=== PATIENT | male | born 1940 | race Caucasian/White ===

== ENCOUNTER 2017-05-11 09:55 | Emergency (ER) | payer OTHER ==
[~2017-05-11] VITALS: Ht 167.6 cm; Wt 78.0 kg
[~2017-05-11 09:55] MED LIST: ASPIRIN EC81 M1 PO; ATORVASTATIN CA40 M1 PO; DAILY MULTIPLE1 EACH PO; FINASTERIDE5 M1 PO; LEVOTHYROXINE25 MCG PO; LISINOPRIL-HCT1 EAC2 PO; VANCOMYCIN HCL125 MG PO; VANCOMYCIN HCL5 G1 PO
[2017-05-11 10:00] VITALS: BP 125/89
--- NOTE | 2017-05-11 10:15 | ED CARDIAC/CP/PALPITATIONS ---
History of Present Illness General Chief Complaint: General Adult Stated Complaint: PER "THEY FOUND A AORTIC ANEURYSM ON CT SCAN" Source: patient, old records Exam Limitations: no limitations Vital Signs & Intake/Output Vital Signs & Intake/Output Vital Signs Date Time Temp Pulse Resp B/P B/P Pulse O2 O2 Flow FiO2 Mean Ox Delivery Rate 05/11 1000 96.3 67 20 125/89 96 Room Air Allergies Coded Allergies: NO KNOWN ALLERGIES (10/29/10) Reconcile Medications Aspirin (Ecotrin*) 81 MG TABLET.DR 1 TAB PO DAILY DIRECTED (Reported) Atorvastatin Calcium 40 MG TABLET 1 TAB PO DAILY DIRECTED (Reported) Finasteride 5 MG TABLET 1 TAB PO DAILY DIRECTED (Reported) Levothyroxine Sodium 25 MCG TABLET 1 TAB PO DAILY DIRECTED (Reported) Multivitamin (Daily Multiple Vitamin) 1 EACH TABLET 1 TAB PO DAILY DIRECTED (Reported) Vancomycin HCl 5 GM POWDER 125 MG PO Q6 c-diff colitis Please continue to take vancomycin until 12/28/15 and stop. Triage Note: PT TO ED FOR AORTIC ANEURSYM. PT HAD OUT PT CAT SCAN ON 05/08 AND RECEIVED CALL FROM DR BLEDSOE LAST NIGHT THAT HE NEEDED TO GO TO THE ER TO "GET IT TAKEN CARE OF". PT DENIES ANY PAIN. Triage Nurses Notes Reviewed? yes Onset: Gradual Duration: constant Timing: recent history Quality/Severity: mild Radiation: no radiation Activities at Onset: none HPI: Patient is a 77-year-old male with a past medical history of hypertension hyperlipidemia prostate cancer with metastasis and a known aortic aneurysm who presents emergency room in which he had follow-up imaging 3 days ago with his RADIOLOGIST/ONCOLOGIST- Dr. BLEDSOE from [facility] oncology which revealed an interval increase of his aneurysm which old records indicate in July 2015 the known aneurysm was approximately 4.5 cm and 3 days ago the aortic aneurysm reveals 5 cm DIAMETER Patient was advised by his radiologist oncologist to follow-up with his primary care doctor when he called today however he was unable to be evaluated by his primary care doctor in the next 2 days and which patient wants to emergently be evaluated for his aneurysm and he presents emergency room. Patient family is without complaints denies any shortness breath fever abdominal pain nausea vomiting chest pain arm pain and dizziness or extremity swelling BELOW IS THE CT SCAN RESULTS PATIENT: CAMPOS WILCOX PRESENT AGE: 77 PATIENT ACCOUNT NO: [id number] : 40 LOCATION: XRY ORDERING PHYSICIAN: Steve Bledsoe MD SERVICE DATE: 05/08/17 EXAM TYPE: CAT - CT ABD & PELVIS W/ ORAL CONTRA EXAMINATION: CT ABDOMEN AND PELVIS WITH CONTRAST CLINICAL INFORMATION: History of prostate cancer evaluate for metastatic disease. COMPARISON: CT scan of the abdomen and pelvis dated 12/19/2015. TECHNIQUE: Multidetector volumetric imaging was performed from the superior aspect of the liver through the pubic symphysis following administration of oral contrast. Sagittal and coronal reformatted images were obtained on the technologist's workstation. DLP: 577.64 mGy-cm FINDINGS: LUNG BASES: Peripheral and central severe emphysematous changes are present in the bilateral lungs, overall stable compared to the prior study. LIVER, GALLBLADDER, AND BILIARY TREE: Again noted are multiple hypoattenuating structures present in the liver, the largest is in the posterior aspect of the right lobe of the liver (series 2, image 11/92), and measures 1.2 cm in diameter stable in size and morphology compared to the prior study. The liver is otherwise normal in size, shape, and attenuation. No biliary ductal dilatation is present. The gallbladder is unremarkable with no evidence of radiopaque gallstones, gallbladder wall thickening, or obvious pericholecystic inflammatory changes. PANCREAS: Unremarkable. SPLEEN: Unremarkable. ADRENAL GLANDS: Unremarkable. KIDNEYS AND URETERS: Again noted are numerous renal cysts, which are overall stable in morphology compared to the prior study. The largest of the cystic structures are in the lower poles, measuring proximally 10.3 cm on the right and 9.8 cm on the left. BLADDER: Unremarkable. GASTROINTESTINAL TRACT: The small and large bowel are unremarkable. The appendix is unremarkable. ABDOMINAL WALL: No significant hernia is appreciated. LYMPH NODES: No pathologically enlarged lymph nodes are present.. VASCULAR: Interval mild increase in the size of the abdominal aortic aneurysm by comparison with the prior study, the aneurysm extends over a length of approximately 7 cm of the lower abdominal aorta and has an anterior posterior dimension of 5.0 cm, compared with 4.6 x 4.5 on the prior study. Extensive atherosclerotic plaque is present throughout the abdominal aorta extending into the celiac axis, the SMA, the bilateral renal arteries (minimal) and extending into the iliac arteries, as well as the splenic artery. 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 PELVIC VISCERA: The prostate gland is enlarged measuring 6.1 x 5.6 x 5.0 cm in size. OSSEOUS STRUCTURES: The bone mineral density is somewhat heterogeneous, however no focal lytic or sclerotic lesions are noted. Again noted is loss of vertebral body height and anterior wedging deformity of the T12 vertebral body which is stable compared to the prior study.. IMPRESSION: 1. Stable hypoattenuating hepatic lesions, most likely representing hepatic cysts. 2. Stable bilateral renal cysts. 3. Interval increase in the size of the abdominal aortic aneurysm in the inferior aspect of the abdominal aorta by comparison with the prior study. The anterior posterior dimension is 5.0 cm currently. 4. Enlarged prostate gland. 5. No hepatic, bony or pulmonary findings are noted to suggest interval development of metastatic disease. Please also refer to the nuclear medicine bone scan performed on the same day as the current study DICTATED BY: Kady Bay MD DATE/TIME DICTATED:05/08/171207 Patient AND FAMILY ARE concerned of a "ticking time bomb" AND ARE IN distress BECAUSE of a known aneurysm however patient offers no complaints at this time Patient will receive radiation therapy in the following week for new onset of prostate cancer diagnosed in March (Alfa Guan) Past History Travel History Traveled to [place] past 21 day No Medical History Any Pertinent Medical History? see below for history Neurological: NONE EENT: NONE Cardiovascular: aortic aneurysm, hypertension, hyperlipidemia Respiratory: COPD, pulmonary nodules Gastrointestinal: Crohn's disease (questionable), questionable lymphocytic colitis hx L ischemic colitis hx colon adenoma diverticulosis coli 11/29/2015 & 12/19/2015: C. 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 Musculoskeletal: degen joint disease, osteopenia Psychiatric: NONE Endocrine: hypothyroidism, osteopenia Blood Disorders: NONE Cancer(s): NONE CLINICAL CARE MANAGER/Reproductive: NONE History of MRSA: No History of VRE: No History of CDIFF: Yes Surgical History Surgical History: HERNIA REPAIR Psychosocial History Who do you live with Spouse Services at Home None What is your primary language Yoruba Tobacco Use: Current Daily Use Daily Tobacco Use Amount/Type: => 5 Cigarettes daily ETOH Use: denies use Illicit Drug Use: denies illicit drug use Family History Family History, If Any: MOTHER, , Age 86; Cause: Unknown family medical history. FATHER, , Age 84; Cause: Unknown family medical history. Hx Contributory? No (Alfa Guan) Review of Systems Review of Systems Constitutional: Reports: no symptoms. EENTM: Reports: no symptoms. Respiratory: Reports: no symptoms. Cardiovascular: Reports: no symptoms. GI: Reports: no symptoms. Genitourinary: Reports: no symptoms. Musculoskeletal: Reports: no symptoms. Skin: Reports: no symptoms. Neurological/Psychological: Reports: no symptoms. Hematologic/Endocrine: Reports: no symptoms. Immunologic/Allergic: Reports: no symptoms. All Other Systems: Reviewed and Negative (Alfa Guan) Physical Exam Physical Exam General Appearance: no apparent distress, alert, comfortable Head: atraumatic Eyes: Bilateral: normal appearance. Ears, Nose, Throat: hearing grossly normal Neck: normal inspection Respiratory: normal breath sounds, no respiratory distress Cardiovascular: regular rate/rhythm Peripheral Pulses: 2+ radial (R), 2+ radial (L) Gastrointestinal: normal bowel sounds, soft, non-tender, no organomegaly, NO PULSATILE MASS Extremities: normal inspection, normal capillary refill, no edema Neurologic/Psych: no motor/sensory deficits, awake, alert Skin: intact, normal color, warm/dry Core Measures ACS in differential dx? No CVA/TIA Diagnosis No Sepsis Present: No Sepsis Focused Exam Completed? No (Alfa Guan) Progress Differential Diagnosis: AMI, aortic dissection, atrial fibrillation, cholecystitis, CHF/pulm edema, costochondritis, hyperkalemia, hypovolemia, hyperthyroid, hyperventilation, intracranial hemorrhage, myocarditis, pancreatitis, pericarditis, pneumonia, pneumothorax, PSVT, pulmonary embolism, PUD/GERD, PVCs/PACs, respiratory failure, sepsis, unstable angina, V-fib/V-Tach, WPW syndrome Plan of Care: PT upon initial arrival was no apparent distress and asymptomatic no concerns of aortic aneurysm rupture or dissection nontender abdomen normotensive VASCULAR SURGERY WAS PAGED [id number] Discussed patient and imaging with vascular surgeon Dr. Salazar who advised since the diameter of the aneurysm is less than 5.5 cm and patient has no symptoms to follow-up in office. Discussed disposition and plan with patient and agree and will follow-up in outpatient office to Dr. Salazar. Discussed disposition plan with Dr. Baptiste who is aware and agrees upon discharge patient looks well HAS NO questionS Diagnostic Imaging: Viewed by Me: CT Scan. Initial ED EKG: none (Alfa Guan) Departure Departure Disposition: HOME OR SELF CARE Condition: Stable Clinical Impression Primary Impression: Aortic aneurysm Referrals: Martin MELENDEZ,Neptali Roberts MD,Albert Cruz (PCP/Family) Additional Instructions: As discussed today please follow-up with established vascular surgeon Dr. NEPTALI Salazar to make an appointment for further evaluation and treatment, continue all medications as directed and follow-up with your oncologist, symptoms worsen or IF YOU develop any new concerning symptom return to emergency room immediately. Departure Forms: Customer Survey General Discharge Information (Alfa Guan) PA/DIRECTOR DIGITAL SALES Co-Sign Statement Statement: ED Attending supervision documentation- [X] I saw and evaluated the patient. I have also reviewed all the pertinent lab results and diagnostic results. I agree with the findings and the plan of care as documented in the PA's/DIRECTOR DIG[employer] SALES's documentation. Patient presents for concern of worsening abdominal aortic aneurysm detected on CAT scan. Fortunately patient has no complaints currently and his abdominal examination is soft and nontender. [] I have reviewed the ED Record and agree with the PA's/DIRECTOR DIGITAL SALES's documentation. [] Additions or exceptions (if any) to the PAs/DIRECTOR DIGITAL SALES's note and plan are summarized below: [] (Oliva MELENDEZ,Rashawn White) Critical Care Note Critical Care Note Critical Care Time: non-applicable (Alfa Guan)
== END 2017-05-11 11:18 ==
LOC: ERH 09:55
DX: I71.9 Aortic aneurysm of unspecified site, without rupture (principal)

== ENCOUNTER 2017-12-11 04:32 | Inpatient (IN) | payer OTHER ==
[~2017-12-11] VITALS: Ht 167.6 cm; Wt 79.4 kg
[~2017-12-11 04:32] MED LIST changes: +ANORO ELLIPTA1 EACH; +LABETALOL HCL100 M1 PO
--- NOTE | 2017-12-11 12:22 | PN- Urology ---
Surgical Brief Attending Note Brief Attending Note: The patient was in the OR about to undergo vascular surgery. The OR staff was unable to place a reeves. On exam there was significant phimosis and the foreskin could not be retracted. Using a clamp the foreskin was dilated and a 16 fr reeves placed. Plan: 1. Leave reeves in for 48 hours and then give voiding trial
[2017-12-11 13:44] LABS: ABSOLUTE BASOPHIL COUNT 0 /CUMM (0.0-0.2); ABSOLUTE EOSINOPHIL COUNT 0.1 /CUMM (0.0-0.7); ABSOLUTE GRANULOCYTE CT 15.1 /CUMM (1.4-6.5); ABSOLUTE LYMPH COUNT 0.8 /CUMM (1.2-3.4); ABSOLUTE MONOCYTE COUNT 1.3 /CUMM (0.10-0.60); BASOPHIL % 0 % (0.0-2.0); EOSINOPHIL % 0.5 % (0-5); HEMATOCRIT 31.3 % (42-52); MEAN CORPUSCULAR HGB CONC 34.2 G/DL (33.0-37.0); MEAN CORPUSCULAR VOLUME 90.8 FL (80.0-94.0); PLATELET COUNT 223 /CUMM (130-400); RBC DISTRIBUTION WIDTH 13.9 % (11.5-14.5); RED BLOOD CELL CT 3.44 /CUMM (4.70-6.10); WHITE BLOOD CELL COUNT 17.1 /CUMM (4.8-10.8)
[2017-12-11 14:39] LABS: GRANULOCYTE % 87.8 % (42.2-75.2)
--- NOTE | 2017-12-11 15:55 | Operative Report ---
Operative/Inv Procedure Report Surgery Date: 12/11/17 Name of Procedure: EVAR Pre-Operative Diagnosis: AAA Post-Operative Diagnosis: AAA Estimated Blood Loss: scant (300), 300 Surgeon/Insulation Worker Apprentice: Jose Salazar MD Anesthesia: general endotracheal tube Specimens: right common femoral plaque Operative Indication: 77 y/o m w/ active smoker with history of copd, cad, ckd, prostate cancer s/p radiation therapy with known AAA and claudication. Pt had seen me in and the aneursym size was approxaimtely 4.7cm in diameter. REpeat CT shows the aneursym has increased in size to 5.2cm. Additionally the patient having significant life style limiting claudication-- could barely walk because of pain in both legs and CT demonstrating significnat bilateral iliac and common femoral disease. WE therefore planned to perform EVAR and simultenously treat the iliac disease. Risks/benefits/alternatives of procedure were discussed. He underwent pre operative cardiac clerance and stress test and was cleared for surgery. Operative/Procedure Note Note: Pt was brought to the OR. A timeout was done to verify the patients name, mrn, . He was placed under general anethesia in the supine position. A radial jimi and multiple large bore iv's were placed. Urology came and placed a reeves as the patient had a significant phimosis and prostate cancer. Prophylactic antibiotics were administered prior to start of the procedure. WE began using ultrasound in attempt to access the right common femoral artery percutaenously but had great difficulty because of the common femoral artery disease and therefore decided to proceed with bilateral groin cut down's. Myself and Dr. carter began simultaneously performing transvers incisions just above the groin crease using 10 blade scalpel. We then used the lynne to divide the subcutaenous tissue. The inguinal ligament was identified and we sharpely dissected the common femoral artery as it coursed under the inguinal ligaments. We obtained control of the common femoral artery, the profunda, and sfa's with vessel loops. The arteries were both heavily calcified. There was posterior plaques in both arteries. AT this time we used 18 gauge needles to access the common femoral arteries in soft spots in both arteries and placed .035 hawkins wires into the arteries. WE used 5 finnish sheaths and had to use a glide wire and catheter in order to advance through the iliac lesions on both sides. We then advance a pigtail into the aorta and shot and aortogram that showed bilateral common iliac lesions and right external iliac disease. At this time we anigioplastied both iliac arteries with a 6mm x 80 balloon. WE then upsized to a 7mm x 80 ballon and performed angioplasty. AT this time we began to have bleeding from the right groin and had to upsize to a 12 finnish sheath to stop the bleeding. We then upsized to a 7 finnish sheath in the left groin and placed lundequist wires up into the the thoracic aorta in both arteries using a glide catheter. WE then positioned a pig tail in the aorta and shot an aortogram. WE marked the location of the renal arteries and measured to the bifurcation. WE then advanced a 28 x 14 x 103 Medtronic main body device up the left side and positioned it just below the renals and deployed until the contra gate was deployed. The top cap was released. We then selected the contra gate using a .035 glide wire and catheter from the right side. We confirmed we were withing the gate by spinning a pigtail and shooting and angiogram within the stent. We then advanced the lundequst throught the catheter and shot an angiogram from the right sheath. The right hypogastric artery was occluded. WE used a 16 x 10 x 124mm limb and deployed it up the right side. We then finished deploying the main body and removed the device and placed a 16 finnish sheath up the left side. WE then used the pigtail catheter and shot an angiogram through the left sheath to jesus where the hypoastric artery was. WE then advanced the 16 x 10 x 124 device up the left side and deployed it. At this time we used two coda balloons and angioplastied the stent and both limbs. WE then placed the pigtail and shot another aortogram. There was still a stenosis in the common iliac on the left side and residual exernal iliac disease. There was good flow through the graft and no evidence of endoleak. Both renal arteries were patent. AT this time DR. Garcia performed stenting of the right common iliac and extrenal iliac artery and also right common femoral endarterectomy which he will dictate seperately. The left arteriotomy was closed with interuppted 6.0 prolene sutures after the wire and sheath was removed and the artery clampped proximally and distally. A 2.0 vicryl was used to close the deep layer and 3.0 vircryl was used to close the subcutenoues and deep dermal layer. Skin was closed with sara. All counts were accurate at the end of the procedure. The patient was extubated and transferred to pacu in stable condition.
[2017-12-11 16:00] VITALS: BP 116/60
--- NOTE | 2017-12-11 16:49 | PN- Vascular Surgery ---
Subjective Subjective: POST-OP NOTE No complaints. Still sleepy. Denies shortness of breath. No chest pains. No nausea/vomiting. Difficult reeves placement in the OR by . Post-op cbc drawn in pacu due to EBL. Transferred from PACU to ICU with dopplerable DP signals, which are reportedly palpable now. Objective Vital Signs and I&Os pacu flowsheet reviewed Physical Exam: General - alert. oriented to person, place, situation. Lungs - clear bilaterally. no w/r/r. Cardiac - s1s2. borderline bradycardic 60s. Abdomen - soft. nontender. - reeves catheter in place, draining clear, yellow urine without clots Extremities - warm bilaterally. groin dressings c/d/i. no hematomas appreciated. calves soft and nontender b/l. trace edema b/l lower extremities. nvi. palpable dp pulses b/l. Current Medications: Current Medications Sig/Galdino Start time Last Medication Dose Route Stop Time Status Admin Acetaminophen 650 MG Q6P PRN 12/11 1530 AC PO Acetaminophen 0 .STK-MED ONE 12/11 0702 DC IV Aspirin Buffered 81 MG DAILY 12/12 09 AC PO Atorvastatin Calcium 40 MG 1700 12/11 1700 AC PO Docusate Sodium 100 MG BID 12/11 2100 AC PO Fentanyl Citrate 0 .STK-MED ONE 12/11 0703 DC .ROUTE Labetalol HCl 100 MG DAILY 12/12 0900 AC PO Levothyroxine Sodium 0.025 MG DAILY AC 12/12 0700 AC PO Morphine Sulfate 2 MG Q4-6 PRN PRN 12/11 1530 AC IV Ondansetron HCl 4 MG Q6P PRN 12/11 1530 AC IV Oxycodone/ 1 TAB Q4P PRN 12/11 1530 AC Acetaminophen PO Oxycodone/ 2 TAB Q4P PRN 12/11 1530 AC Acetaminophen PO Sodium Chloride 1,000 ML Q8H 12/11 1530 AC IV Tiotropium [place] 1 PUF DAILY 12/12 09 AC INH Results Last 48 Hours of Labs: Laboratory Tests 12/11 1310 Hematology CBC w Diff NO MAN DIFF REQ WBC (4.8 - 10.8 /CUMM) 17.1 H RBC (4.70 - 6.10 /CUMM) 3.44 L Hgb (14.0 - 18.0 G/DL) 10.7 L Hct (42 - 52 %) 31.3 L MCV (80.0 - 94.0 FL) 90.8 MCH (27.0 - 31.0 PG) 31.0 MCHC (33.0 - 37.0 G/DL) 34.2 RDW (11.5 - 14.5 %) 13.9 Plt Count (130 - 400 /CUMM) 223 MPV (7.4 - 10.4 FL) 7.0 L Gran % (42.2 - 75.2 %) 87.8 H Lymphocytes % (20.5 - 51.1 %) 4.4 L Monocytes % (1.7 - 9.3 %) 7.3 Eosinophils % (0 - 5 %) 0.5 Basophils % (0.0 - 2.0 %) 0 Absolute Granulocytes (1.4 - 6.5 /CUMM) 15.1 H Absolute Lymphocytes (1.2 - 3.4 /CUMM) 0.8 L Absolute Monocytes (0.10 - 0.60 /CUMM) 1.3 H Absolute Eosinophils (0.0 - 0.7 /CUMM) 0.1 Absolute Basophils (0.0 - 0.2 /CUMM) 0 Assessment/Plan Assessment/Plan This 77 year old male with pmh significant for copd, active smoking, cad, ckd, prostate cancer s/p radiation therapy with known AAA and life style limiting claudication / CT demonstrating significant bilateral iliac and common femoral disease, POD#0 s/p endovascular AAA repair EVAR, iliac stents and common femoral endarectomy, also requiring intra-operative urology consultation by for difficult reeves catheter placement advance diet as tolerated pain control as ordered continue daily aspirin keep reeves catheter x 48 hours per , and then voiding trial neurovascular checks and groin checks f/u serial labs monitor urine output and continue ivf overnight for chronic kidney disease in setting of dye load f/u urine culture home meds ordered, including beta naila d/w Core Measures Venous Thromboembolism VTE Risk Factors Surgery No Mechanical VTE Prophylaxis d/t N/A MechProphylax Ordered No VTE Pharm Prophylaxis d/t NA PharmProphylax ordered
[2017-12-11 18:00] VITALS: BP 122/51
[2017-12-11 20:00] VITALS: BP 114/58
[2017-12-11 22:00] VITALS: BP 103/57
[2017-12-12] VITALS: BP 104/60
[2017-12-12 05:30] LABS: ABSOLUTE BASOPHIL COUNT 0 /CUMM (0.0-0.2); ABSOLUTE EOSINOPHIL COUNT 0 /CUMM (0.0-0.7); ABSOLUTE GRANULOCYTE CT 9.3 /CUMM (1.4-6.5); ABSOLUTE LYMPH COUNT 1.1 /CUMM (1.2-3.4); ABSOLUTE MONOCYTE COUNT 1.4 /CUMM (0.10-0.60); BASOPHIL % 0.1 % (0.0-2.0); EOSINOPHIL % 0.1 % (0-5); GRANULOCYTE % 78.2 % (42.2-75.2); HEMATOCRIT 30.5 % (42-52); MEAN CORPUSCULAR HGB 30.7 PG (27.0-31.0); MEAN CORPUSCULAR HGB CONC 33.2 G/DL (33.0-37.0); MEAN CORPUSCULAR VOLUME 92.5 FL (80.0-94.0); MEAN PLATELET VOLUME 7.1 FL (7.4-10.4); PLATELET COUNT 193 /CUMM (130-400); RBC DISTRIBUTION WIDTH 14.4 % (11.5-14.5); WHITE BLOOD CELL COUNT 11.8 /CUMM (4.8-10.8)
--- NOTE | 2017-12-12 06:29 | PN- Vascular Surgery ---
Subjective Subjective: feeling ok, some left back/flank pain (present preop per pt), some groin pain, no n/v/cp/sob. no oob. hungry. Objective Vital Signs and I&Os Vital Signs SBP 100-120s overnight HR-60s overnight sats mid90s on 50%vm Date Time Temp Pulse Resp B/P B/P Pulse O2 O2 Flow FiO2 Mean Ox Delivery Rate 12/12 0000 97.9 58 20 104/60 92 Nasal 3.0L Cannula 12/12 0000 92 Nasal 3.0L Cannula 12/11 2200 62 20 103/57 93 Nasal 3.0L Cannula 12/12 1999 93 Nasal 3.0L Cannula 12/12 1999 98.1 64 22 114/58 93 Nasal 3.0L Cannula 12/11 1938 Nasal 4.0L Cannula 12/11 1800 97.0 62 19 122/51 97 Nasal 3.0L Cannula 12/11 1600 Nasal 3.0L Cannula 12/11 1600 97.0 67 20 116/60 94 Nasal 3.0L Cannula Intake & Output 12/12 0800 12/12 0000 12/11 1600 12/11 0800 12/11 0000 12/10 1600 Intake Total 1385 Output Total 450 Balance 935 Intake, IV 785 Intake, Oral 600 Output, Urine 450 Patient 179 lb 179 lb Weight Weight Bed scale Bed scale Measurement Method Physical Exam: gen- nad card-s1s2 pulm-decreased bs bases abd- soft, obese, distended, nt ext- bl groins dressed-ttp, no hematoma, mild dinorah-incisional ecchymosis r groin. palp dp bl. calves soft nt bl, alps on. gross motor/sensate intact bl feet Current Medications: Current Medications Sig/Galdino Start time Last Medication Dose Route Stop Time Status Admin Acetaminophen 650 MG Q6P PRN 12/11 1530 AC PO Acetaminophen 0 .STK-MED ONE 12/11 0702 DC IV Albuterol Sulfate 3 ML Q4-PRN PRN 12/11 1930 AC 12/11 INH 1936 Aspirin Buffered 81 MG DAILY 12/12 0900 AC PO Atorvastatin Calcium 40 MG 1700 12/11 1700 AC 12/11 PO 1833 Docusate Sodium 100 MG BID 12/11 2100 AC PO Fentanyl Citrate 0 .STK-MED ONE 12/11 0703 DC .ROUTE Ipratropium [place] 2.5 ML Q4-6 PRN 12/11 1930 AC 12/11 INH 1936 Labetalol HCl 100 MG DAILY 12/12 0900 AC PO Levothyroxine Sodium 0.025 MG DAILY AC 12/12 0700 AC PO Morphine Sulfate 2 MG Q4-6 PRN PRN 12/11 1530 AC IV Ondansetron HCl 4 MG Q6P PRN 12/11 1530 AC IV Oxycodone/ 1 TAB Q4P PRN 12/11 1530 AC Acetaminophen PO Oxycodone/ 2 TAB Q4P PRN 12/11 1530 AC Acetaminophen PO Sodium Chloride 1,000 ML Q8H 12/11 1530 AC 12/12 IV 0002 Tiotropium [place] 1 PUF DAILY 12/12 09 AC INH Results Last 48 Hours of Labs: Laboratory Tests 12/12 12/11 0430 1310 Chemistry Sodium Pending Potassium Pending Chloride Pending Carbon Dioxide Pending Anion Gap Pending BUN Pending Creatinine Pending BUN/Creatinine Ratio Pending Hematology CBC w Diff NO MAN DIFF REQ NO MAN DIFF REQ WBC (4.8 - 10.8 /CUMM) 11.8 H 17.1 H RBC (4.70 - 6.10 /CUMM) 3.30 L 3.44 L Hgb (14.0 - 18.0 G/DL) 10.1 L 10.7 L Hct (42 - 52 %) 30.5 L 31.3 L MCV (80.0 - 94.0 FL) 92.5 90.8 MCH (27.0 - 31.0 PG) 30.7 31.0 MCHC (33.0 - 37.0 G/DL) 33.2 34.2 RDW (11.5 - 14.5 %) 14.4 13.9 Plt Count (130 - 400 /CUMM) 193 223 MPV (7.4 - 10.4 FL) 7.1 L 7.0 L Gran % (42.2 - 75.2 %) 78.2 H 87.8 H Lymphocytes % (20.5 - 51.1 %) 9.5 L 4.4 L Monocytes % (1.7 - 9.3 %) 12.1 H 7.3 Eosinophils % (0 - 5 %) 0.1 0.5 Basophils % (0.0 - 2.0 %) 0.1 0 Absolute Granulocytes (1.4 - 6.5 /CUMM) 9.3 H 15.1 H Absolute Lymphocytes (1.2 - 3.4 /CUMM) 1.1 L 0.8 L Absolute Monocytes (0.10 - 0.60 /CUMM) 1.4 H 1.3 H Absolute Eosinophils (0.0 - 0.7 /CUMM) 0 0.1 Absolute Basophils (0.0 - 0.2 /CUMM) 0 0 Assessment/Plan Assessment/Plan 77yoM POD1 sp evar, common fem endarterectomy, ilial stenting, with difficult reeves placement requiring Dr. Lopez to place in OR, has been bedrest since OR, stable P- HH diet keep ivf until lytes back- asa 81 daily prn apin meds ok for oob today ?out of icu today keep reeves in place x48hr- [facility] meds will dw attending Core Measures Venous Thromboembolism VTE Risk Factors Surgery No Mechanical VTE Prophylaxis d/t N/A MechProphylax Ordered No VTE Pharm Prophylaxis d/t NA PharmProphylax ordered
--- NOTE | 2017-12-12 07:29 | PN- Urology ---
Subjective Subjective: Comfortable Objective Vital Signs and I&Os Vital Signs Date Time Temp Pulse Resp B/P B/P Pulse O2 O2 Flow FiO2 Mean Ox Delivery Rate 12/12 0000 97.9 58 20 104/60 92 Nasal 3.0L Cannula 12/12 92 Nasal 3.0L Cannula 12/11 2200 62 20 103/57 93 Nasal 3.0L Cannula 12/12 1999 93 Nasal 3.0L Cannula 12/12 1999 98.1 64 22 114/58 93 Nasal 3.0L Cannula 12/11 1938 Nasal 4.0L Cannula 12/11 1800 97.0 62 19 122/51 97 Nasal 3.0L Cannula 12/11 1600 Nasal 3.0L Cannula 12/11 1600 97.0 67 20 116/60 94 Nasal 3.0L Cannula Intake & Output 12/12 0812/12 0000 12/11 1600 12/11 0812/11 0000 12/10 1600 Intake Total 1349 1385 Output Total 480 450 Balance 869 935 Intake, IV 1029 785 Intake, Oral 320 600 Output, Urine 480 450 Patient 179 lb 179 lb Weight Weight Bed scale Bed scale Measurement Method Reeves draining clear urine Laboratory Tests 12/12 12/11 0430 1310 Chemistry Sodium (137 - 145 mmol/L) 138 Potassium (3.5 - 5.1 mmol/L) 4.6 Chloride (98 - 107 mmol/L) 109 H Carbon Dioxide (22 - 30 mmol/L) 23 Anion Gap (5 - 16) 6 BUN (9 - 20 mg/dL) 28 H Creatinine (0.7 - 1.2 mg/dL) 1.4 H Estimated GFR (>60 ml/min) 49 L BUN/Creatinine Ratio (7 - 25 %) 20.0 Hematology CBC w Diff NO MAN DIFF REQ NO MAN DIFF REQ WBC (4.8 - 10.8 /CUMM) 11.8 H 17.1 H RBC (4.70 - 6.10 /CUMM) 3.30 L 3.44 L Hgb (14.0 - 18.0 G/DL) 10.1 L 10.7 L Hct (42 - 52 %) 30.5 L 31.3 L MCV (80.0 - 94.0 FL) 92.5 90.8 MCH (27.0 - 31.0 PG) 30.7 31.0 MCHC (33.0 - 37.0 G/DL) 33.2 34.2 RDW (11.5 - 14.5 %) 14.4 13.9 Plt Count (130 - 400 /CUMM) 193 223 MPV (7.4 - 10.4 FL) 7.1 L 7.0 L Gran % (42.2 - 75.2 %) 78.2 H 87.8 H Lymphocytes % (20.5 - 51.1 %) 9.5 L 4.4 L Monocytes % (1.7 - 9.3 %) 12.1 H 7.3 Eosinophils % (0 - 5 %) 0.1 0.5 Basophils % (0.0 - 2.0 %) 0.1 0 Absolute Granulocytes (1.4 - 6.5 /CUMM) 9.3 H 15.1 H Absolute Lymphocytes (1.2 - 3.4 /CUMM) 1.1 L 0.8 L Absolute Monocytes (0.10 - 0.60 /CUMM) 1.4 H 1.3 H Absolute Eosinophils (0.0 - 0.7 /CUMM) 0 0.1 Absolute Basophils (0.0 - 0.2 /CUMM) 0 0 Assessment/Plan Assessment/Plan Imp: 1. s/p difficulty reeves placement, due to severe phimosis 2. hx of prostate ca tx'ed with RT Plan: 1. would leave reeves today and remove first thing tomorrow AM
[2017-12-12 08:00] VITALS: BP 120/70
--- NOTE | 2017-12-12 08:03 | RADIOLOGY REPORT ---
EXAMINATION: Intraoperative fluoroscopy CLINICAL INFORMATION: Intraoperative abdominal aortic aneurysm repair. COMPARISON: CT abdomen pelvis 11/03/2017 TECHNIQUE: Intraoperative fluoroscopy was provided for use by Dr. Salazar. A total of 15 images were saved to PACS. A radiologist was not present during imaging. TOTAL FLUOROSCOPIC TIME: 26 minutes and 41 seconds FINDINGS\E\IMPRESSION: Intraoperative fluoroscopy provided for use by Dr. Salazar. Please see operative note for detailed findings.
--- NOTE | 2017-12-12 09:11 | RADIOLOGY REPORT ---
EXAMINATION: XR PORTABLE CHEST CLINICAL INFORMATION: Pain to left lower ribs. COMPARISON: None TECHNIQUE: Portable frontal view of the chest was obtained. FINDINGS: Slightly rotated positioning. Monitoring leads projected over the chest. Cardiomediastinal silhouette is within normal limits. Calcification of the aortic arch. Linear and streaky opacities in bilateral lung bases, more prominent on the left. Small left pleural effusion. Mildly displaced fracture of the lateral left 10th rib. Suspected undisplaced fracture of the lateral left 11th rib. IMPRESSION: Bibasilar atelectasis, more prominent on the left. Small left pleural effusion. Fracture of the lateral left 10th,11th rib.
--- NOTE | 2017-12-12 11:27 | PN- Vascular Surgery ---
Surgical Brief Attending Note Brief Attending Note: pt seen and examined this am. s/p EVAR and right common femoral endarterectomy, right external iliac stent, left groin cut down yesterday for AAA and PAD. He had reeves placed by urology for severe phimosis. complaining of some left rib pain this am-- hit ribs on table when getting stress test. CXR shows 10th and 11th rib fx's. Will need pain mgmt and incentive spirometry. otherwise labs wnl. cre 1.4 today-- previouly 1.7. hct 30's. groins soft c/d/i. strong dp signals. plan is for pt oob/ambulate. asa. reeves mgmt per urology. hopefully dc tomorrow if able to ambulate and void after reeves removed. can dc from [facility] today
--- NOTE | 2017-12-12 15:43 | Operative Report ---
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 Salazar's note. I independently performed the right common femoral artery endarterectomy and angioplasty as well as right external iliac artery stenting and angioplasty. Via sheath in the right common femoral artery, angioplasty of the right external iliac artery was performed using 6 x 60 followed by 7 x 60 mm balloon. Then a Cordis self-expanding stent measuring 7 x 100 mm was deployed and external iliac artery. Post stenting angioplasty was performed with a 7 x 60 mm balloon. Post angioplasty and stenting of the external iliac artery showed brisk flow through this vessel. After the sheath was removed from the EVAR procedure, the artery was shattered and closure was not possible. There was a large heavy calcification in the posterior and lateral sands of the artery. I decided to extend the arteriotomy in the cephalad and caudal direction. Then, control of distal proximal profunda was obtained by vessel loops. Using an elevator, endarterectomy of the common femoral artery was performed. Then the patch angioplasty was performed with bovine patch using 6-0 Prolene suture. After the completion of the endarterectomy and patch, was great biphasic Doppler signal in the profunda and SFA. The count at the end of the case was correct. The wound was then closed with 3-0 Vicryl suture in interrupted fashion. The skin was then closed with sara. Sterile dressing was applied. The patient was taken to the recovery room in stable condition.
[2017-12-13] VITALS: BP 112/60
[2017-12-13 04:00] VITALS: BP 120/58
--- NOTE | 2017-12-13 07:52 | PN- Urology ---
Subjective Subjective: No complaints Objective Vital Signs and I&Os Vital Signs Date Time Temp Pulse Resp B/P B/P Pulse O2 O2 Flow FiO2 Mean Ox Delivery Rate 12/13 0400 96.4 66 18 120/58 92 Nasal 4.0L Cannula 12/13 0000 92 Nasal 4.0L Cannula 12/13 0000 96.8 68 22 112/60 92 Nasal 4.0L Cannula 12/12 2228 94 Nasal 4.0L Cannula 12/12 1600 92 Nasal 3.0L Cannula 12/12 0939 94 Nasal 4.0L Cannula 12/12 0800 92 Venti Mask 50% 12/12 08 97.8 80 25 120/70 92 Venti Mask 50% Intake & Output 12/13 0800 12/13 0000 12/12 1600 12/12 0812/12 0000 12/11 1600 Intake Total 1100 378 969 0913 1385 Output Total 950 450 480 450 Balance 150 800 525 869 935 Intake, IV 800 760 708 5286 785 Intake, Oral 300 600 320 600 Number 0 0 Bowel Movements Output, Urine 950 450 480 450 Patient 179 lb 179 lb Weight Weight Bed scale Bed scale Measurement Method Reeves in place. Draining clear urine Urine culture growing gram neg rods Assessment/Plan Assessment/Plan Imp: 1. s/p difficult reeves insertion due to severe phimosis 2. UTI 3. Hx of prostate ca tx with RT Plan: 1. Would start po keflex pending urine culture results 2. Would remove reeves early this AM 3. After discharge will need f/u either with his usual urologist or in our office
[2017-12-13 08:00] VITALS: BP 120/80
[2017-12-13 10:00] VITALS: BP 138/60
--- NOTE | 2017-12-13 10:51 | PN- Vascular Surgery ---
See Addendum Subjective Subjective: PT SITTING IN CHAIR SOB AFTER AMBULTING WITH PT, ON 4L O2 BY NASAL CANULA WITH O2 SAT 88-92. PT STATES THAT RIB PAIN IS SIGNIFICANTLY BETTER TODAY. IS PRETTY TENDER IN LEFT GROIN. TOLERATING DIET HAWKINS WAS REMOVED THIS MORNING AND PT IS VOIDING Objective Vital Signs and I&Os Vital Signs Date Time Temp Pulse Resp B/P B/P Pulse O2 O2 Flow FiO2 Mean Ox Delivery Rate 12/13 0400 96.4 66 18 120/58 92 Nasal 4.0L Cannula 12/13 0000 92 Nasal 4.0L Cannula 12/13 0000 96.8 68 22 112/60 92 Nasal 4.0L Cannula 12/12 2228 94 Nasal 4.0L Cannula 12/12 1600 92 Nasal 3.0L Cannula Intake & Output 12/13 1600 12/13 0800 12/13 0000 12/12 1600 12/12 0800 12/12 0000 Intake Total 1100 897 262 5857 1385 Output Total 950 450 480 450 Balance 150 800 525 869 935 Intake, IV 800 810 958 0602 785 Intake, Oral 300 600 320 600 Number 0 0 Bowel Movements Output, Urine 950 450 480 450 Patient 179 lb Weight Weight Bed scale Measurement Method Physical Exam: GEN- nad RESP- RHONCHI THROUGHOUT CARDIAC-RRR ABD- SOFT NONTENDER. RIGHT GROIN DRESSING CHANGED, PETE IN PLACE, MINIMAL DRAINAGE ON DRESSING, NO SIGNS OF INFECTION. CLEAN DRY DRESSING APPLIED. LEFT GROIN DRESSING CHANGED, PETE IN PLACE, MINIMAL DRAINAGE ON DRESSING, NO SIGNS OF INFECTION. CLEAN DRY DRESSING APPLIED EXT- WARM AND DRY, 1+DP PULSE BILATERALLY. BASELINE DISTAL SENSORY AND MOTOR FUNCTION INTACT Current Medications: Current Medications Sig/Galdino Start time Last Medication Dose Route Stop Time Status Admin Acetaminophen 650 MG Q6P PRN 12/11 1530 AC PO Albuterol Sulfate 3 ML Q4-PRN PRN 12/11 1930 AC 12/12 INH 0918 Aspirin Buffered 81 MG DAILY 12/12 0900 AC 12/12 PO 1043 Atorvastatin Calcium 40 MG 1700 12/11 1700 AC 12/12 PO 1623 Cephalexin 500 MG BID 12/13 1000 UNVr PO Docusate Sodium 100 MG BID 12/11 2100 AC 12/12 PO 2107 Furosemide 20 MG ONCE ONE 12/13 1100 UNVr PO 12/13 1101 Ipratropium [place] 2.5 ML Q4-6 PRN 12/11 1930 AC 12/11 INH 1936 Labetalol HCl 100 MG DAILY 12/12 0900 AC 12/12 PO 1043 Levothyroxine Sodium 0.025 MG DAILY AC 12/12 0700 AC 12/13 PO 0730 Morphine Sulfate 2 MG Q4-6 PRN PRN 12/11 1530 AC IV Ondansetron HCl 4 MG Q6P PRN 12/11 1530 AC IV Oxycodone/ 1 TAB Q4P PRN 12/11 1530 AC 12/12 Acetaminophen PO 1640 Oxycodone/ 2 TAB Q4P PRN 12/11 1530 AC Acetaminophen PO Sodium Chloride 1,000 ML Q8H 12/11 1530 DC 12/13 IV 0730 Tiotropium [place] 1 PUF DAILY 12/12 0900 AC 12/12 INH 1042 Zolpidem Tartrate 0 .STK-MED ONE 12/13 0124 DC PO Zolpidem Tartrate 5 MG AT BEDTIME 12/13 0115 AC 12/13 PO 0125 Results Last 48 Hours of Labs: Laboratory Tests 12/12 12/11 0430 1310 Chemistry Sodium (137 - 145 mmol/L) 138 Potassium (3.5 - 5.1 mmol/L) 4.6 Chloride (98 - 107 mmol/L) 109 H Carbon Dioxide (22 - 30 mmol/L) 23 Anion Gap (5 - 16) 6 BUN (9 - 20 mg/dL) 28 H Creatinine (0.7 - 1.2 mg/dL) 1.4 H Estimated GFR (>60 ml/min) 49 L BUN/Creatinine Ratio (7 - 25 %) 20.0 Hematology CBC w Diff NO MAN DIFF REQ NO MAN DIFF REQ WBC (4.8 - 10.8 /CUMM) 11.8 H 17.1 H RBC (4.70 - 6.10 /CUMM) 3.30 L 3.44 L Hgb (14.0 - 18.0 G/DL) 10.1 L 10.7 L Hct (42 - 52 %) 30.5 L 31.3 L MCV (80.0 - 94.0 FL) 92.5 90.8 MCH (27.0 - 31.0 PG) 30.7 31.0 MCHC (33.0 - 37.0 G/DL) 33.2 34.2 RDW (11.5 - 14.5 %) 14.4 13.9 Plt Count (130 - 400 /CUMM) 193 223 MPV (7.4 - 10.4 FL) 7.1 L 7.0 L Gran % (42.2 - 75.2 %) 78.2 H 87.8 H Lymphocytes % (20.5 - 51.1 %) 9.5 L 4.4 L Monocytes % (1.7 - 9.3 %) 12.1 H 7.3 Eosinophils % (0 - 5 %) 0.1 0.5 Basophils % (0.0 - 2.0 %) 0.1 0 Absolute Granulocytes (1.4 - 6.5 /CUMM) 9.3 H 15.1 H Absolute Lymphocytes (1.2 - 3.4 /CUMM) 1.1 L 0.8 L Absolute Monocytes (0.10 - 0.60 /CUMM) 1.4 H 1.3 H Absolute Eosinophils (0.0 - 0.7 /CUMM) 0 0.1 Absolute Basophils (0.0 - 0.2 /CUMM) 0 0 Assessment/Plan Assessment/Plan Assessment/Plan 77yoM POD2 sp evar, common fem endarterectomy, ilial stenting, with difficult hawkins placement requiring Dr. Lopez to place in OR. Hawkins DCed this morning. pt has left rib fractures, 10 and 11th ribs. pt still requiring 4L O2 to maintain sats P- CXR chest PT encourage IS lasix now try to wean O2 when able HH diet asa 81 daily prn apin meds- may consider lidoderm patch ok for oob today still in CCU on gen/med hold per urology- will start ABX cont home meds dr amaya is aware and agrees with the above plan Core Measures Venous Thromboembolism VTE Risk Factors Surgery No Mechanical VTE Prophylaxis d/t N/A MechProphylax Ordered No VTE Pharm Prophylaxis d/t NA PharmProphylax ordered
[2017-12-13 12:30] LABS: ABSOLUTE BASOPHIL COUNT 0 /CUMM (0.0-0.2); ABSOLUTE EOSINOPHIL COUNT 0.5 /CUMM (0.0-0.7); ABSOLUTE GRANULOCYTE CT 8.4 /CUMM (1.4-6.5); ABSOLUTE LYMPH COUNT 1.1 /CUMM (1.2-3.4); ABSOLUTE MONOCYTE COUNT 1.2 /CUMM (0.10-0.60); BASOPHIL % 0.3 % (0.0-2.0); HEMATOCRIT 31.6 % (42-52); MEAN CORPUSCULAR HGB 30.5 PG (27.0-31.0); MEAN CORPUSCULAR VOLUME 92.4 FL (80.0-94.0); MEAN PLATELET VOLUME 7.1 FL (7.4-10.4); PLATELET COUNT 226 /CUMM (130-400); RBC DISTRIBUTION WIDTH 14.4 % (11.5-14.5); RED BLOOD CELL CT 3.42 /CUMM (4.70-6.10); WHITE BLOOD CELL COUNT 11.3 /CUMM (4.8-10.8)
--- NOTE | 2017-12-13 14:09 | PN- Vascular Surgery ---
Surgical Brief Attending Note Brief Attending Note: pt seen and examined. reeves out and voiding. has ambulated without difficulty. still on 4 liters 02. a/p 77 y/o m s/p EVAR and right femoral endarterectomy with iliac stenting --ok for discharge when off o2 -- abx for uti per urology
[2017-12-13 16:00] VITALS: BP 110/68
--- NOTE | 2017-12-13 16:22 | RADIOLOGY REPORT ---
EXAMINATION: XR CHEST CLINICAL INFORMATION: Shortness of breath requiring oxygen. Atelectasis. COMPARISON: Chest x-ray 12/12/2017. TECHNIQUE: Frontal and lateral views of the chest were obtained. FINDINGS: The lungs are hyperexpanded with flattening of the hemidiaphragms and retrosternal air trapping, consistent with COPD. The cardiac silhouette is normal in size. The aortic arch is calcified and unfolded and the descending aorta is tortuous and ectatic. Linear opacities at the right base with prominent compared to the prior study consistent with atelectasis. There are atelectatic changes at the left base. The left pleural effusion appears minimally increased in size compared to the prior study. The hilar regions are prominent bilaterally consistent with prominent central pulmonary arteries. The previously noted fractures of the left 10th and 11th ribs laterally are not appreciated on the current study. There are multilevel degenerative changes in the thoracic spine. IMPRESSION: 1. There has been slight interval increase in the left pleural effusion. 2. There is increase in atelectasis at the right base.
[2017-12-13 22:15] VITALS: BP 122/60
[2017-12-14 06:11] VITALS: BP 120/60
--- NOTE | 2017-12-14 07:45 | PN- Urology ---
Subjective Subjective: Comfortable Objective Vital Signs and I&Os Vital Signs Date Time Temp Pulse Resp B/P B/P Pulse O2 O2 Flow FiO2 Mean Ox Delivery Rate 12/14 0611 97.3 71 20 120/60 93 Nasal 2.0L Cannula 12/14 0000 Nasal 2.0L Cannula 12/13 2215 98.3 72 20 122/60 90 Nasal Cannula 12/13 1935 93 Nasal 3.0L Cannula 12/13 1600 Nasal 2.0L Cannula 12/13 1600 96.8 68 18 110/68 93 Nasal 2.0L Cannula 12/13 1251 92 Nasal 2.0L Cannula 12/13 1054 72 138/60 12/13 1000 72 20 138/60 93 Nasal 4.0L Cannula 12/13 0800 Nasal 4.0L Cannula 12/13 0800 96.6 66 18 120/80 94 Room Air Intake & Output 12/14 0800 12/14 0000 12/13 1600 12/13 0800 12/13 0000 12/12 1600 Intake Total 240 371 795 5371 800 975 Output Total 122 872 9113 950 450 Balance 40 140 -500 150 800 525 Intake, IV 40 800 800 375 Intake, Oral 240 240 560 300 600 Number 0 0 Bowel Movements Output, Urine 006 308 0287 950 450 Patient 179 lb Weight Reeves removed yesterday. Patient voiding spontaneously without complaints Abd: soft and non tender. Bladder not palpable. Laboratory Tests 12/13 1130 Chemistry Sodium (137 - 145 mmol/L) 136 L Potassium (3.5 - 5.1 mmol/L) 4.7 Chloride (98 - 107 mmol/L) 106 Carbon Dioxide (22 - 30 mmol/L) 25 Anion Gap (5 - 16) 5 BUN (9 - 20 mg/dL) 28 H Creatinine (0.7 - 1.2 mg/dL) 1.3 H Estimated GFR (>60 ml/min) 54 L BUN/Creatinine Ratio (7 - 25 %) 21.5 Hematology CBC w Diff NO MAN DIFF REQ WBC (4.8 - 10.8 /CUMM) 11.3 H RBC (4.70 - 6.10 /CUMM) 3.42 L Hgb (14.0 - 18.0 G/DL) 10.4 L Hct (42 - 52 %) 31.6 L MCV (80.0 - 94.0 FL) 92.4 MCH (27.0 - 31.0 PG) 30.5 MCHC (33.0 - 37.0 G/DL) 33.0 RDW (11.5 - 14.5 %) 14.4 Plt Count (130 - 400 /CUMM) 226 MPV (7.4 - 10.4 FL) 7.1 L Gran % (42.2 - 75.2 %) 75.0 Lymphocytes % (20.5 - 51.1 %) 9.8 L Monocytes % (1.7 - 9.3 %) 10.9 H Eosinophils % (0 - 5 %) 4.0 Basophils % (0.0 - 2.0 %) 0.3 Absolute Granulocytes (1.4 - 6.5 /CUMM) 8.4 H Absolute Lymphocytes (1.2 - 3.4 /CUMM) 1.1 L Absolute Monocytes (0.10 - 0.60 /CUMM) 1.2 H Absolute Eosinophils (0.0 - 0.7 /CUMM) 0.5 Absolute Basophils (0.0 - 0.2 /CUMM) 0 Urine culture positive for proteus, sensitive to keflex Assessment/Plan Assessment/Plan Imp: 1. s/p difficult reeves insertion due to phimosis 2. UTI 3. Hx of prostate ca tx'ed with RT Plan: 1. In view of recent vascular procedure involving grafts and UTI would complete a 1 week course of keflex as outpatient 2. Pt should have f/u either with his usual urologist or in our office in the future
--- NOTE | 2017-12-14 07:52 | PN- General Surgery ---
Core Measures Venous Thromboembolism VTE Risk Factors Surgery No Mechanical VTE Prophylaxis d/t N/A MechProphylax Ordered No VTE Pharm Prophylaxis d/t NA PharmProphylax ordered
[2017-12-14] MEDS ORDERED: PERCOCET 5-3251 EACH PO (11:22)
[2017-12-14] MEDS ORDERED: CEPHALEXIN500 M3 PO (11:22)
[2017-12-14] MEDS ORDERED: TYLENOL325 M1 PO (11:22)
--- NOTE | 2017-12-14 11:30 | Patient Discharge Instructions ---
Discharge Instructions General Discharge Information You were seen/treated for: Aortic aneurysm You had these procedures: Endovascular aortic aneurysm repair Watch for these problems: Abdominal pain, feeling lightheaded weak or dizzy, leg pain, fever or flulike illness Do not soak the wound: Yes No bath, but you may shower: Yes Other wound care: No dressing needed, may apply Band-Aids Special Instructions: Per urology recommendations, please continue on Keflex for 1 week, this is an antibiotic. Please follow-up with urologist in 1-2 weeks Follow-up with Dr. Salazar within 2 weeks Continue your aspirin Watch for signs of shortness of breath, cough, fever, cough with sputum, call the surgeon with any concerns or call your primary care doctor Diet Continue normal diet: Yes Activity Full Activity/No Limits: No Activity Self Limited: Yes Pounds, do NOT lift more than: 10 Acute Coronary Syndrome Inclusion Criteria At DC or during hospital stay patient has or had the following: ACS DIAGNOSIS No Discharge Core Measures Meds if any: Prescribed or Continued at Discharge Meds if any: NOT Prescribed or Continued at Discharge Congestive Heart Failure Inclusion Criteria At DC or during hospital stay patient has or had the following: CHF DIAGNOSIS No Discharge Core Measures Meds if any: Prescribed or Continued at Discharge Meds if any: NOT Prescribed or Continued at Discharge Cerebrovascular accident Inclusion Criteria At DC or during hospital stay patient has or had the following: CVA/TIA Diagnosis No Discharge Core Measures Meds if any: Prescribed or Continued at Discharge Meds if any: NOT Prescribed or Continued at Discharge Venous thromboembolism Inclusion Criteria VTE Diagnosis No VTE Type NONE VTE Confirmed by (Test) NONE Discharge Core Measures - Per Current guidelines, there needs to be overlap - treatment for the first 5 days of Warfarin therapy. - If discharged on Warfarin prior to 5 days of - overlap therapy, the patient will need to be - assessed for post discharge needs including - *Post discharge parental anticoagulation - *Warfarin and/or parental anticoagulation education - *Follow up date to check INR post discharge At least 5 days overlap therapy as Inpatient No Meds if any: Prescribed or Continued at Discharge Note: Overlap Therapy is Warfarin and Anticoagulant Meds if any: NOT Prescribed or Continued at Discharge
--- NOTE | 2017-12-14 11:38 | PN- Vascular Surgery ---
Subjective Subjective: Patient doing well this am. He has been ambulating, voiding, tolerating a regular diet, and pain is well controlled. He denies any other issues or complaints. Objective Vital Signs and I&Os Vital Signs Date Time Temp Pulse Resp B/P B/P Pulse O2 O2 Flow FiO2 Mean Ox Delivery Rate 12/14 1030 93 Nasal 4.0L Cannula 12/14 0841 97.3 71 20 120/60 12/14 0800 Nasal 2.0L Cannula 12/14 0611 97.3 71 20 120/60 93 Nasal 2.0L Cannula 12/14 0000 Nasal 2.0L Cannula 12/13 2215 98.3 72 20 122/60 90 Nasal Cannula 12/13 1935 93 Nasal 3.0L Cannula 12/13 1600 Nasal 2.0L Cannula 12/13 1600 96.8 68 18 110/68 93 Nasal 2.0L Cannula 12/13 1251 92 Nasal 2.0L Cannula Intake & Output 12/14 1600 12/14 0800 12/14 0000 12/13 1600 12/13 0800 12/13 0000 Intake Total 240 463 552 7667 800 Output Total 200 888 444 5399 950 Balance -200 40 140 -500 150 800 Intake, IV 40 800 800 Intake, Oral 240 240 560 300 Number 0 Bowel Movements Output, Urine 200 757 693 2963 950 Patient 179 lb Weight Physical Exam: General: A, A, NAD Inguinal: Dsg's c/d/i Extremities: No clubbing or cyanosis, 1+ pitting edema at the ankle Current Medications: Current Medications Sig/Galdino Start time Last Medication Dose Route Stop Time Status Admin Acetaminophen 650 MG Q6P PRN 12/11 1530 AC PO Albuterol Sulfate 3 ML Q4-PRN PRN 12/11 193 AC 12/14 INH 1026 Aspirin Buffered 81 MG DAILY 12/12 09 AC 12/14 PO 0841 Atorvastatin Calcium 40 MG 1700 12/11 1700 AC 12/13 PO 1658 Cephalexin 500 MG BID 12/13 1000 AC 12/14 PO 12/22 2100 0841 Docusate Sodium 100 MG BID 12/11 2100 AC 12/14 PO 0841 Ipratropium [place] 2.5 ML Q4-6 PRN 12/11 193 AC 12/14 INH 1026 Labetalol HCl 100 MG DAILY 12/12 09 AC 12/14 PO 0841 Levothyroxine Sodium 0.025 MG DAILY AC 12/12 0700 AC 12/14 PO 0514 Morphine Sulfate 2 MG Q4-6 PRN PRN 12/11 1530 AC IV Ondansetron HCl 4 MG Q6P PRN 12/11 1530 AC IV Oxycodone/ 1 TAB Q4P PRN 12/11 1530 AC 12/13 Acetaminophen PO 1821 Oxycodone/ 2 TAB Q4P PRN 12/11 1530 AC Acetaminophen PO Tiotropium [place] 1 PUF DAILY 12/12 0900 AC 12/14 INH 0845 Zolpidem Tartrate 5 MG AT BEDTIME 12/13 0115 AC 12/13 PO 2156 Results Last 48 Hours of Labs: Laboratory Tests 12/13 1130 Chemistry Sodium (137 - 145 mmol/L) 136 L Potassium (3.5 - 5.1 mmol/L) 4.7 Chloride (98 - 107 mmol/L) 106 Carbon Dioxide (22 - 30 mmol/L) 25 Anion Gap (5 - 16) 5 BUN (9 - 20 mg/dL) 28 H Creatinine (0.7 - 1.2 mg/dL) 1.3 H Estimated GFR (>60 ml/min) 54 L BUN/Creatinine Ratio (7 - 25 %) 21.5 Hematology CBC w Diff NO MAN DIFF REQ WBC (4.8 - 10.8 /CUMM) 11.3 H RBC (4.70 - 6.10 /CUMM) 3.42 L Hgb (14.0 - 18.0 G/DL) 10.4 L Hct (42 - 52 %) 31.6 L MCV (80.0 - 94.0 FL) 92.4 MCH (27.0 - 31.0 PG) 30.5 MCHC (33.0 - 37.0 G/DL) 33.0 RDW (11.5 - 14.5 %) 14.4 Plt Count (130 - 400 /CUMM) 226 MPV (7.4 - 10.4 FL) 7.1 L Gran % (42.2 - 75.2 %) 75.0 Lymphocytes % (20.5 - 51.1 %) 9.8 L Monocytes % (1.7 - 9.3 %) 10.9 H Eosinophils % (0 - 5 %) 4.0 Basophils % (0.0 - 2.0 %) 0.3 Absolute Granulocytes (1.4 - 6.5 /CUMM) 8.4 H Absolute Lymphocytes (1.2 - 3.4 /CUMM) 1.1 L Absolute Monocytes (0.10 - 0.60 /CUMM) 1.2 H Absolute Eosinophils (0.0 - 0.7 /CUMM) 0.5 Absolute Basophils (0.0 - 0.2 /CUMM) 0 Assessment/Plan Assessment/Plan This is a 77 yo M POD#3 s/p evar, common fem endarterectomy, iliac stenting, postoperative course complicated by difficult reeves placement requiring Dr. Lopez to place in OR. Reeves subsequently removed, and hypoxia of which patient is still requiring supplemental O2 to maintain sats demonstrated on desat study today. Plan for today is to continue regular diet, ambulation, IS, turn/cough/deep breathe techniques, GI/DVT px, prn analgesics and antiemetics, home medications, and abx per urology for uti. Anticipate possible d/c in the next 24-48 hours. Will d/w Dr. Salazar. Will continue to follow closely. Problem List: 1. Aortic aneurysm Core Measures Venous Thromboembolism VTE Risk Factors Surgery No Mechanical VTE Prophylaxis d/t N/A MechProphylax Ordered No VTE Pharm Prophylaxis d/t NA PharmProphylax ordered
--- NOTE | 2017-12-14 11:38 | Surgical Discharge Summary ---
Visit Information Visit Dates Admission Date: 12/11/17 Discharge Date: 12/19/17 History of Present Illness Chief Complaint: Abdominal aortic aneurysm Medical History Neurological: NONE EENT: NONE Cardiovascular: aortic aneurysm, hypertension, hyperlipidemia Respiratory: COPD, pulmonary nodules Gastrointestinal: questionable lymphocytic colitis hx L ischemic colitis hx colon adenoma diverticulosis coli 11/29/2015 & 12/19/2015: C. 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 FATHER, , Age 84; Cause: Unknown family medical history. Psychosocial History Where Do You Live? Home Who Do You Live With? Spouse Services at Home: None What is Your Primary Language? Macedonian Review of Systems: See [facility] Hospital Course Course Attending Physician: Jose Salazar MD Primary Care Physician: Albert Roberts MD Hospital Course: Patient presented on 12/15/17 an elective endovascular AAA repair Dr. Salazar. Surgery well without complications. He also had bilateral groin cutdown during the procedure. He was placed on aspirin postoperatively. He was monitored in the ICU overnight, he has history of COPD and prior to his admission he sustained a fall which she had left-sided rib fractures of 10 and 11. He had mild hypoxia and desaturations when ambulating accompanied by a cough in his postoperative period. Serial chest x-rays were performed which shows small pleural effusion and atelectasis. He was placed on submental oxygen and weaned appropriately, respiratory treatments as well. He has work with physical therapy as well. His vital signs are stable, laboratory values are stable he is afebrile. Due to phimosis, he was seen by urology and they recommended intraoperative Hoskins catheter that was removed at 48 hours and he was placed on Keflex for UTI for 1 week. His diet was advanced and well-tolerated, his pain was controlled and he was deemed stable for discharge Complications: Postoperative hypoxia, atelectasis Allergies: Coded Allergies: NO KNOWN ALLERGIES (none 12/11/17) Disposition Summary Disposition Principal Diagnosis: Abdominal aortic aneurysm status post endovascular AAA repair Additional Diagnosis: Atelectasis, hypoxia, UTI Discharge Disposition: home health services Discharge Instructions General Discharge Information Code Status: Full Code Patient's Diet: Regular Patient's Activity: No lifting greater than 10 pounds, activity as tolerated Follow-Up Instructions/Appts: Follow-up with Dr. Salazar within 2 weeks and urology in 1-2 weeks. Pain medication as needed. Continue taking Keflex as directed Medications at Discharge Discharge Medications: Continue taking these medications: Levothyroxine Sodium (Levothyroxine Sodium) 25 MCG TABLET 1 Tablet ORAL DAILY Qty = 90 Comments: Last Taken: 12/19/17 Time: 6 AM Atorvastatin Calcium (Atorvastatin Calcium) 40 MG TABLET 1 Tablet ORAL DAILY Qty = 90 Comments: Last Taken: 12/18/17 Time: 5 PM Aspirin (Ecotrin*) 81 MG TABLET. 1 Tablet ORAL DAILY Comments: Last Taken: 12/19/17 Time: 9 AM Labetalol HCl (Labetalol HCl) 100 MG TABLET 1 Tablet ORAL DAILY Comments: LAST TAKEN: 12/19/17 @ 9 AM Umeclidinium Brm/Vilanterol Tr (Anoro Ellipta 62.5-25 Mcg INH) 62.5 MCG-25 MCG/ ACTUATION BLST.W.DEV Comments: NOT TAKEN IN HOSPITAL Start taking the following new medications: Tiotropium [place] (Spiriva) 18 MCG CAP.W.DEV 1 Capsule Inhale through mouth DAILY Qty = 30 No Refills Instructions: Please take daily as directed. Albuterol Sulfate (Albuterol Sulfate) 2.5 MG/3 ML (0.083 %) VIAL.NEB 3 Milliliters Inhale through mouth EVERY 4 HRS WHILE AWAKE as needed for EMPHYSEMA Qty = 100 No Refills Instructions: Please take as directed when needed. Apixaban (Eliquis) 5 MG TABLET 0 ORAL SEE INSTRUCTIONS Qty = 68 No Refills Instructions: Take 2 tabs in PM on 12/19 Take 2 tabs in AM and PM from 12/20-12/23 Take 1 tab in AM and PM afterwards. Prednisone (Prednisone) 5 MG TABLET 0 ORAL SEE INSTRUCTIONS Qty = 33 No Refills Instructions: Take 6 tabs from 12/20 to 12/21 4 tabs from 12/22 to 12/24 2 tabs from 12/25 to 12/27 1 tab from 12/28 to 12/30. Albuterol Sulfate (Proair Hfa) 90 MCG HFA.AER.AD 2 Puff Inhale through mouth EVERY 4-6 HOURS NEEDED as needed for EMPHYSEMA Qty = 1 No Refills Instructions: Please take as directed when needed. Acetaminophen (Tylenol) 325 MG TABLET 650 Milligram ORAL EVERY SIX HOURS NEEDED as needed for PAIN 1-3 TEMP GREATER THAN 101 Qty = 30 No Refills Cephalexin (Cephalexin) 500 MG CAPSULE 500 Milligram ORAL THREE TIMES DAILY Qty = 21 No Refills
[2017-12-14 15:04] VITALS: BP 116/70
--- NOTE | 2017-12-14 18:46 | PN- Vascular Surgery ---
Surgical Brief Attending Note Brief Attending Note: pt seen and examined. still on o2. voiding. ambulating. groins c/d/i. feet wwp. plan for dispo tomorrow. abx 1 week per urology.
[2017-12-14 22:58] VITALS: BP 120/70
[2017-12-15 06:09] VITALS: BP 130/80
--- NOTE | 2017-12-15 08:17 | PN- Vascular Surgery ---
Subjective Subjective: PT IN BED, WITH MILD SOB ON 4.5L BY NASAL CANULA. COMPLAINS OF SOME LEFT SIDED CHESTWALL PAIN FROM RIB FRACTURES, TAKING PERCOCET FOR PAIN. LAST BM WAS ABOUT 1 WEEK AGO. TOLERATING DIET BUT NOT GREAT APPETITE. VOIDING. NO DYSUREA AMBULATING WITH PT. USING IS EVERY 10 MINUTES OR SO NO GROIN PAIN Objective Vital Signs and I&Os Vital Signs Date Time Temp Pulse Resp B/P B/P Pulse O2 O2 Flow FiO2 Mean Ox Delivery Rate 12/15 0609 98.7 72 20 130/80 90 Nasal 5.0L Cannula 12/15 0108 91 Nasal 4.5L Cannula 12/14 2330 93 Nasal 4.0L Cannula 12/14 2258 98.6 65 24 120/70 91 Nasal 4.0L Cannula 12/14 1830 93 Nasal 4.0L Cannula 12/14 1504 98.6 64 18 116/70 92 Nasal Cannula 12/14 1030 93 Nasal 4.0L Cannula 12/14 0841 97.3 71 20 120/60 Intake & Output 12/15 1600 12/15 0812/15 0000 12/14 1600 12/14 0800 12/14 0000 Intake Total 250 100 800 240 240 Output Total 350 600 750 200 100 Balance -100 -500 50 40 140 Intake, IV 10 Intake, Oral 240 100 800 240 240 Output, Urine 350 600 750 200 100 Physical Exam: GEN- NAD RESP- DECREASED BREATH SOUNDS THROUGHOUT BUT MORE DISTANT AT LEFT BASE CARDAIC-RRR ABD-SOFT, NONTENDER GROIN- DRESSINGS REMOVED, PETE IN PLACE, NOT SIGNS OF INFECTION OR HEMATOMA, NO DRAINAGE. EXT- FEET WARM AND DRY, 2+dp PULSE BILATERALLY, DISTAL SENSORY AND MOTOR FUNCTION INTACT Current Medications: Current Medications Sig/Galdino Start time Last Medication Dose Route Stop Time Status Admin Acetaminophen 650 MG Q6P PRN 12/11 1530 AC PO Albuterol Sulfate 3 ML EVERY 4 HRS/AWAKE 12/15 1999 AC 12/15 INH 0813 Albuterol Sulfate 3 ML Q4-PRN PRN 12/11 1930 DC 12/14 INH 1424 Aspirin Buffered 81 MG DAILY 12/12 0900 AC 12/14 PO 0841 Atorvastatin Calcium 40 MG 1700 12/11 1700 AC 12/14 PO 1658 Cephalexin 500 MG BID 12/13 1000 AC 12/14 PO 08/31 2100 2017 Diphenhydramine HCl 50 MG AT BEDTIME NEED.. 12/14 1315 AC IV Docusate Sodium 100 MG BID 12/11 2100 AC 12/14 PO 2017 Guaifenesin 600 MG Q12 12/14 2222 AC 12/15 PO 0145 Ipratropium [place] 2.5 ML Q4-6 PRN 12/11 1930 DC 12/14 INH 1424 Labetalol HCl 100 MG DAILY 12/12 0900 AC 12/14 PO 0841 Levothyroxine Sodium 0.025 MG DAILY AC 12/12 0700 AC 12/15 PO 0546 Morphine Sulfate 2 MG Q4-6 PRN PRN 12/11 1530 AC IV Ondansetron HCl 4 MG Q6P PRN 12/11 1530 AC IV Oxycodone/ 1 TAB Q4P PRN 12/11 1530 AC 12/13 Acetaminophen PO 1821 Oxycodone/ 2 TAB Q4P PRN 12/11 1530 AC Acetaminophen PO Patient Medication 1 ED ONE ONE 12/14 1815 DC Teaching ED 12/14 1816 Tiotropium [place] 1 PUF DAILY 12/12 0900 AC 12/14 INH 0845 Zolpidem Tartrate 5 MG AT BEDTIME 12/13 0115 AC 12/14 PO 2017 Results Last 48 Hours of Labs: Laboratory Tests 12/13 1130 Chemistry Sodium (137 - 145 mmol/L) 136 L Potassium (3.5 - 5.1 mmol/L) 4.7 Chloride (98 - 107 mmol/L) 106 Carbon Dioxide (22 - 30 mmol/L) 25 Anion Gap (5 - 16) 5 BUN (9 - 20 mg/dL) 28 H Creatinine (0.7 - 1.2 mg/dL) 1.3 H Estimated GFR (>60 ml/min) 54 L BUN/Creatinine Ratio (7 - 25 %) 21.5 Hematology CBC w Diff NO MAN DIFF REQ WBC (4.8 - 10.8 /CUMM) 11.3 H RBC (4.70 - 6.10 /CUMM) 3.42 L Hgb (14.0 - 18.0 G/DL) 10.4 L Hct (42 - 52 %) 31.6 L MCV (80.0 - 94.0 FL) 92.4 MCH (27.0 - 31.0 PG) 30.5 MCHC (33.0 - 37.0 G/DL) 33.0 RDW (11.5 - 14.5 %) 14.4 Plt Count (130 - 400 /CUMM) 226 MPV (7.4 - 10.4 FL) 7.1 L Gran % (42.2 - 75.2 %) 75.0 Lymphocytes % (20.5 - 51.1 %) 9.8 L Monocytes % (1.7 - 9.3 %) 10.9 H Eosinophils % (0 - 5 %) 4.0 Basophils % (0.0 - 2.0 %) 0.3 Absolute Granulocytes (1.4 - 6.5 /CUMM) 8.4 H Absolute Lymphocytes (1.2 - 3.4 /CUMM) 1.1 L Absolute Monocytes (0.10 - 0.60 /CUMM) 1.2 H Absolute Eosinophils (0.0 - 0.7 /CUMM) 0.5 Absolute Basophils (0.0 - 0.2 /CUMM) 0 Assessment/Plan Assessment/Plan This is a 77 yo M POD#3 s/p evar, common fem endarterectomy, iliac stenting, postoperative course complicated by difficult reeves placement requiring Dr. Lopez to place in OR. Reeves subsequently removed. During this admission he was found to have left-sided rib fractures which he states is from turning on a table at a medical office just prior to this admission, he thought it was just a bruise. Pt is stable for a surgical standpoint. Pt is has persistant hypoxia for which he is still requiring supplemental O2 to maintain sats demonstrated on desat study today. 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 Spoke to Dr. Francis who rec that medicine take over the management of this pt as he is stable from a surgical standpoint but now with hypoxia requiring 4-5L O2 to maintain sats above 90%, DR Francis also wants a VQ Scan today and she will follow-up on the results. Medicine consult called, spoke with Dr Carlson who said he froilan come see the pt. He requested that i order ABGs and will decide after seeing the pt if he wants a CTA of the chest. continue regular diet ambulation IS, turn/cough/deep breathe techniques pain management- will order lidoderm patch for chest wall pain from rib fractures colace and will add PO dulcolax today home medications abx per urology for uti. Will d/w Dr. Salazar. Will continue to follow closely. Core Measures Venous Thromboembolism VTE Risk Factors Surgery No Mechanical VTE Prophylaxis d/t N/A MechProphylax Ordered No VTE Pharm Prophylaxis d/t NA PharmProphylax ordered
--- NOTE | 2017-12-15 08:59 | Cons- Medical ---
Joshua Diazngozi 12/15/17 0859: General Information and HPI Consulting Request Date of Consult: 12/15/17 Requested By: Jose Amaya MD Reason for Consult: hypoxia Source of Information: patient History of Present Illness: Mr. Andersen Is a 77-year-old male, active smoker with past medical history of COPD (not on home oxygen), coronary artery disease, CAD, prostate cancer status post radiation therapy with known abdominal aortic aneurysm and claudication, with gradually increasing aneurysm size and worsening symptoms of intermittent claudication of both the legs, ultimately planned for endovascular aneurysm repair now status post day 4 elective endovascular abdominal aneurysm repair, right common femoral endarterectomy and patch angioplasty along with angioplasty and stenting of the right external iliac artery had medicine team was consulted because of acute hypoxemia. Surgery he was monitored in ICU overnight, initially he had mild hypoxia and desaturations when ambulating, however due to persistent hypoxia, medicine team was consulted. of note, prior to presentation for surgery he had left 10th and 11th ribs fracture while having a near fall at home prior to undergoing AAA repair. Allergies/Medications Allergies: Coded Allergies: NO KNOWN ALLERGIES (none 12/11/17) Home Med List: Acetaminophen (Tylenol) 325 MG TABLET 650 MG PO Q6P PRN PAIN 1-3 TEMP GREATER THAN 101 Aspirin (Ecotrin*) 81 MG TABLET.DR 1 TAB PO DAILY DIRECTED (Reported) Atorvastatin Calcium 40 MG TABLET 1 TAB PO DAILY DIRECTED (Reported) Cephalexin 500 MG CAPSULE 500 MG PO TID UTI Labetalol HCl 100 MG TABLET 1 TAB PO DAILY HTN (Reported) Levothyroxine Sodium 25 MCG TABLET 1 TAB PO DAILY DIRECTED (Reported) Oxycodone HCl/Acetaminophen (Percocet 5-325 MG Tablet) 5 MG-325 MG TABLET 1-2 TAB PO Q4P PRN PAIN Umeclidinium Brm/Vilanterol Tr (Anoro Ellipta 62.5-25 Mcg INH) 62.5 MCG-25 MCG/ ACTUATION BLST.W.DEV COPD (Reported) Current Medications: Current Medications Sig/Galdino Start time Last Medication Dose Route Stop Time Status Admin Acetaminophen 650 MG Q6P PRN 12/11 1530 AC PO Albuterol Sulfate 3 ML EVERY 4 HRS/AWAKE 12/14 2000 AC 12/15 INH 0813 Albuterol Sulfate 3 ML Q4-PRN PRN 12/11 1930 DC 12/14 INH 1424 Aspirin Buffered 81 MG DAILY 12/12 0900 AC 12/15 PO 0820 Atorvastatin Calcium 40 MG 1700 12/11 1700 AC 12/14 PO 1658 Bisacodyl 5 MG ONE ONE 12/15 0845 UNVr PO 12/15 0846 Cephalexin 500 MG BID 12/13 1000 AC 12/15 PO 12/22 2100 0820 Diphenhydramine HCl 50 MG AT BEDTIME NEED.. 12/14 1315 AC IV Docusate Sodium 100 MG BID 12/11 2100 AC 12/15 PO 0820 Guaifenesin 600 MG Q12 12/14 2222 AC 12/15 PO 0820 Ipratropium [place] 2.5 ML Q4-6 PRN 12/11 1930 DC 12/14 INH 1424 Labetalol HCl 100 MG DAILY 12/12 0900 AC 12/15 PO 0821 Levothyroxine Sodium 0.025 MG DAILY AC 12/12 0700 AC 12/15 PO 0546 Lidocaine 1 PAT Q12H PRN 12/15 0900 UNVr TOP Morphine Sulfate 2 MG Q4-6 PRN PRN 12/11 1530 AC IV Ondansetron HCl 4 MG Q6P PRN 12/11 1530 AC IV Oxycodone/ 1 TAB Q4P PRN 12/11 1530 AC 12/13 Acetaminophen PO 1821 Oxycodone/ 2 TAB Q4P PRN 12/11 1530 AC Acetaminophen PO Patient Medication 1 ED ONE ONE 12/14 1815 DC Teaching ED 12/14 1816 Tiotropium [place] 1 PUF DAILY 12/12 0900 AC 12/15 INH 0821 Zolpidem Tartrate 5 MG AT BEDTIME 12/13 0115 AC 12/14 PO 2017 Review of Systems Review of Systems Constitutional: Reports: see HPI. Cardiovascular: Reports: orthopena, peripheral edema. Denies: chest pain, edema, palpitations. Respiratory: Reports: cough, short of breath, sputum production. Denies: hemoptysis, orthopnea. GI: Denies: abdominal pain, bloating, constipation, diarrhea. Genitourinary: Reports: dysuria. Denies: frequency, hematuria, hesitation. Musculoskeletal: Reports: no symptoms. Skin: Reports: no symptoms. Neurological/Psychological: Reports: no symptoms. Hematologic/Endocrine: Reports: no symptoms. Immunologic/Allergic: Reports: no symptoms. All Other Systems: Reviewed and Negative Past History Medical History Neurological: NONE EENT: NONE Cardiovascular: aortic aneurysm, hypertension, hyperlipidemia Respiratory: COPD, pulmonary nodules Gastrointestinal: questionable lymphocytic colitis hx L ischemic colitis hx colon adenoma diverticulosis coli 11/29/2015 & 12/19/2015: C. 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 FATHER, , Age 84; Cause: Unknown family medical history. Psychosocial History Where Do You Live? Home Who Do You Live With? spouse Services at Home: None Primary Language: Nigerian, Stateless Smoking Status: Current Everyday Smoker Living Will? no Power of Procurement Forester/HCP? no Functional Ability ADLs Independent: dressing, eating, toileting, bathing. Ambulation: independent IADLs Independent: shopping, housework, finances, food prep, telephone, transportation , medication admin. Exam & Diagnostic Data Last 24 Hrs of Vital Signs/I&O Vital Signs Date Time Temp Pulse Resp B/P B/P Pulse O2 O2 Flow FiO2 Mean Ox Delivery Rate 12/15 0821 98.7 72 20 130/80 12/15 0814 92 Nasal 4.0L Cannula 12/15 0609 98.7 72 20 130/80 90 Nasal 5.0L Cannula 12/15 0108 91 Nasal 4.5L Cannula 12/14 2330 93 Nasal 4.0L Cannula 12/14 2258 98.6 65 24 120/70 91 Nasal 4.0L Cannula 12/14 1830 93 Nasal 4.0L Cannula 12/14 1504 98.6 64 18 116/70 92 Nasal Cannula 12/14 1030 93 Nasal 4.0L Cannula Intake & Output 12/15 1600 12/15 0800 12/15 0000 Intake Total 250 100 Output Total 350 600 Balance -100 -500 Intake, IV 10 Intake, Oral 240 100 Output, Urine 350 600 Physical Exam General Appearance: no apparent distress, on 4 litres nasal cannula Head: atraumatic, normal appearance Eyes: Bilateral: PERRL, EOMI. Ears, Nose, Throat: normal pharynx, normal ENT inspection Neck: normal inspection, supple Respiratory: decreased breath sounds on the Cardiovascular: regular rate/rhythm Gastrointestinal: normal bowel sounds, soft, mild tenderness on left lower lateral abdomen Extremities: right bigger than left, b/l edema + Cranial Nerves: normal hearing, normal speech, PERRL Skin: intact, normal color Last 24 Hrs of Labs/Jostin: .. Diagnostic Data CXR Results IMPRESSION: 1. There has been slight interval increase in the left pleural effusion. 2. There is increase in atelectasis at the right base. Assessment/Plan Assessment/Plan In summary this is a 77-year-old male, active smoker with past medical history of COPD(not on home oxygen), coronary artery disease, prostate cancer status post radiation,left 10th and 11th ribs prior to presentation while havign a near fall, with known abdominal aortic aneurysm and claudication now status post day 4 of elective endovascular abdominal aneurysm repair, right common femur endarterectomy and patch angioplasty along with angioplasty and stenting of the right external iliac artery, now affecting hypoxia and especially when ambulating current saturations 90% on 5 L of nasal cannula. His vitals today morning temperature of 98.7, pulse of 72, respiration of 20, blood pressure 130/80. His labs were not done this morning, previous labs from December 13 which had a normal white count, H/H of 10.4/31.6. Of 136, potassium of 4.7, BUN/creatinine 28/1.3, (this is his baseline creatinine). Current medications consist of diphenhydramine 50 at bedtime, cephalexin 500 twice a day, Ambien 5 mg at bedtime, labetalol 100 daily, aspirin 81 mg daily, Synthyroid 0.025 daily long with pain medications and TRC. Problem list along with assessment and plan. 1. persistent hypoxia status post surgery with history of COPD, current active smoker. 2. H/o COPD not on home oxygen 3. h/o recent left 10th nad 11th rib frature s/p near fall 4. H/o hypothyrodism 5. h/o htn 6. H/o CAD 7. Current Active Smoker Plan -Please obtain v/q fernandes ad patient creatinine is elevated to rule out PE -Please obtain lower extremity doppler b/l to rule out DVT -Chest PT -Also obtain right upper extremity doppler as right UE extremtiy swelling + -Please obtain ABG -Pain management for Rib pain s/p fracture -ct TRC nebulisations. -Incentive spirometry -Please also obtain non-contrast CT of chest as recommended by pulmonology. -ct other meds -pulm consult -tessalon perles for dry cough -encourage po hydration as he does look dry. -Nicotine patch for smoking cessation. -please touch base with Dr amaya regarding AC recommendations post recent surgery Thank you for the consult. Copies To: Martin MELENDEZ,Jose; Blanca MELENDEZ,[facility] Consult Acknowledgment - Thank you for your consult request. MccollumVíctor cazaresata 12/15/17 1255: Assessment/Plan Consult Acknowledgment - Thank you for your consult request. Attending MD Review Statement Attending Statement Attending MD Statement: examined this patient, discuss w/resident/PA/REPORT ANALYST, agreed w/resident/PA/REPORT ANALYST, reviewed EMR data (avail) Attending Assessment/Plan: Plan will be to get CT non contast chest to evaluate further his pleural effusion. Will also get V/q scan and lower extremity ultrasound and RUE ultrasound to r/o dvt. Put pt on nicotine patch as pt is having cravings. d/w pt the care plan.
--- NOTE | 2017-12-15 09:39 | Cons- Pulmonary ---
Lotus Thomas MD 12/15/17 0859: General Information and HPI Consulting Request Date of Consult: 12/15/17 Requested By: Dr. Salazar Reason for Consult: Hypoxemic respiratory failure Source of Information: patient, old records Exam Limitations: no limitations History of Present Illness: The patient is a 77-year-old male with a complicated past medical history including non-oxygen dependent COPD, long-standing tobacco use, history of pulmonary nodules, prostate cancer status post radiation, hypertension, hyperlipidemia, diabetes, renal cyst, hepatic cyst, BPH, DJD, osteopenia, colitis, and vascular disease. The patient also has recent rib fractures (left sided, ribs 10 and 11). The patient underwent an elective endovascular AAA repair on 12/11/2017, which required bilateral groin cutdown during the procedure. He was incidentally found to have phimosis and was seen by urology and a Hoskins was placed with Keflex for a UTI. Postoperatively, the patient has been experiencing ongoing hypoxemia. At baseline, the patient has COPD. He had a lung cancer screening CAT scan in April 2017 that demonstrated advanced emphysema with associated pulmonary fibrosis and interstitial lung disease. Asbestosis was suspected. The patient also had multiple bilateral scattered non -calcified densities which were unchanged. Annual screening was recommended as a result of that CT. chest x-ray postop showed bibasilar atelectasis more prominent on the left with a small left pleural effusion, and lateral left 10th and 11th rib fractures. Because of the patient's ongoing hypoxia a repeat chest x-ray was done on 12/13/2017 that showed an increased left pleural effusion and some atelectasis at the right base. The patient is currently requiring 4-5 L nasal cannula for saturations in the low 90s. He reports having a cough, significant sinus congestion and difficulty with sputum expectoration. He is afebrile. Allergies/Medications Allergies: Coded Allergies: NO KNOWN ALLERGIES (none 12/11/17) Home Med List: Acetaminophen (Tylenol) 325 MG TABLET 650 MG PO Q6P PRN PAIN 1-3 TEMP GREATER THAN 101 Aspirin (Ecotrin*) 81 MG TABLET. 1 TAB PO DAILY DIRECTED (Reported) Atorvastatin Calcium 40 MG TABLET 1 TAB PO DAILY DIRECTED (Reported) Cephalexin 500 MG CAPSULE 500 MG PO TID UTI Labetalol HCl 100 MG TABLET 1 TAB PO DAILY HTN (Reported) Levothyroxine Sodium 25 MCG TABLET 1 TAB PO DAILY DIRECTED (Reported) Oxycodone HCl/Acetaminophen (Percocet 5-325 MG Tablet) 5 MG-325 MG TABLET 1-2 TAB PO Q4P PRN PAIN Umeclidinium Brm/Vilanterol Tr (Anoro Ellipta 62.5-25 Mcg INH) 62.5 MCG-25 MCG/ ACTUATION BLST.W.DEV COPD (Reported) Current Medications: Current Medications Sig/Galdino Start time Last Medication Dose Route Stop Time Status Admin Acetaminophen 650 MG Q6P PRN 12/11 1530 AC PO Albuterol Sulfate 3 ML EVERY 4 HRS/AWAKE 12/14 2000 AC 12/15 INH 0813 Albuterol Sulfate 3 ML Q4-PRN PRN 12/11 1930 DC 12/14 INH 1424 Aspirin Buffered 81 MG DAILY 12/12 0900 AC 12/15 PO 0820 Atorvastatin Calcium 40 MG 1700 12/11 1700 AC 12/14 PO 1658 Bisacodyl 5 MG ONE ONE 12/15 0845 DC PO 12/15 0846 Cephalexin 500 MG BID 12/13 1000 AC 12/15 PO 12/22 2100 0820 Diphenhydramine HCl 50 MG AT BEDTIME NEED.. 12/14 1315 AC IV Docusate Sodium 100 MG BID 12/11 2100 AC 12/15 PO 0820 Guaifenesin 600 MG Q12 12/14 2222 AC 12/15 PO 0820 Ipratropium [place] 2.5 ML Q4-6 PRN 12/11 1930 DC 12/14 INH 1424 Labetalol HCl 100 MG DAILY 12/12 0900 AC 12/15 PO 0821 Levothyroxine Sodium 0.025 MG DAILY AC 12/12 0700 AC 12/15 PO 0546 Lidocaine 1 PAT Q12H PRN 12/15 0900 UNVr TOP Morphine Sulfate 2 MG Q4-6 PRN PRN 12/11 1530 AC IV Ondansetron HCl 4 MG Q6P PRN 12/11 1530 AC IV Oxycodone/ 1 TAB Q4P PRN 12/11 1530 AC 12/13 Acetaminophen PO 1821 Oxycodone/ 2 TAB Q4P PRN 12/11 1530 AC Acetaminophen PO Patient Medication 1 ED ONE ONE 12/14 1815 DC Teaching ED 12/14 1816 Tiotropium [place] 1 PUF DAILY 12/12 0900 AC 12/15 INH 0821 Zolpidem Tartrate 5 MG AT BEDTIME 12/13 0115 AC 12/14 PO 2017 Review of Systems Review of Systems Constitutional: Denies: chills, diaphoresis, fever, malaise, weakness. EENTM: Reports: nasal congestion. Denies: visual changes, eye pain. Cardiovascular: Reports: chest pain. Denies: edema, orthopena, palpitations, peripheral edema ( pleuritic pain). Respiratory: Reports: cough, short of breath, sputum production, wheezing. Denies: hemoptysis, orthopnea, stridor. GI: Reports: constipation. Genitourinary: Denies: hematuria, pain. All Other Systems: Reviewed and Negative Past History Medical History Neurological: NONE EENT: NONE Cardiovascular: aortic aneurysm, hypertension, hyperlipidemia Respiratory: COPD, pulmonary nodules Gastrointestinal: questionable lymphocytic colitis hx L ischemic colitis hx colon adenoma diverticulosis coli 11/29/2015 & 12/19/2015: C. 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 FATHER, , Age 84; Cause: Unknown family medical history. Psychosocial History Where Do You Live? Home Who Do You Live With? spouse Services at Home: None Primary Language: Kinyarwanda, Maltese Smoking Status: Current Everyday Smoker Living Will? no Power of A P Supervisor/HCP? no Functional Ability ADLs Independent: dressing, eating, toileting, bathing. Ambulation: independent IADLs Independent: shopping, housework, finances, food prep, telephone, transportation , medication admin. Exam & Diagnostic Data Last 24 Hrs of Vital Signs/I&O Vital Signs Date Time Temp Pulse Resp B/P B/P Pulse O2 O2 Flow FiO2 Mean Ox Delivery Rate 12/15 0821 98.7 72 20 130/80 12/15 0814 92 Nasal 4.0L Cannula 12/15 0609 98.7 72 20 130/80 90 Nasal 5.0L Cannula 12/15 0108 91 Nasal 4.5L Cannula 12/14 2330 93 Nasal 4.0L Cannula 12/14 2258 98.6 65 24 120/70 91 Nasal 4.0L Cannula 12/14 1830 93 Nasal 4.0L Cannula 12/14 1504 98.6 64 18 116/70 92 Nasal Cannula 12/14 1030 93 Nasal 4.0L Cannula Intake & Output 12/15 1600 12/15 0800 12/15 0000 Intake Total 250 100 Output Total 350 600 Balance -100 -500 Intake, IV 10 Intake, Oral 240 100 Output, Urine 350 600 Physical Exam General Appearance: no apparent distress, alert, awake, comfortable Head: atraumatic, normal appearance Eyes: Bilateral: PERRL. Neck: supple Respiratory: no respiratory distress, quiet respiration, accessory muscle use, wheezing Cardiovascular: regular rate/rhythm Gastrointestinal: soft, non-tender Extremities: no edema Skin: intact, normal color, warm/dry Last 48 Hrs of Labs/Jostin: Laboratory Tests 12/13/17 1130: Anion Gap 5, Estimated GFR 54 L, BUN/Creatinine Ratio 21.5, CBC w Diff NO MAN DIFF REQ, RBC 3.42 L, MCV 92.4, MCH 30.5, MCHC 33.0, RDW 14.4, MPV 7.1 L, Gran % 75.0, Lymphocytes % 9.8 L, Monocytes % 10.9 H, Eosinophils % 4.0, Basophils % 0.3, Absolute Granulocytes 8.4 H, Absolute Lymphocytes 1.1 L, Absolute Monocytes 1.2 H, Absolute Eosinophils 0.5, Absolute Basophils 0 Diagnostic Data CXR Results Chest x-ray images reviewed. Assessment/Plan Impression/Plan: 1. Ongoing hypoxemic respiratory failure which is likely multifactorial. This most likely secondary to chronic advanced emphysema, interstitial lung disease and asbestosis. The patient also has an increasing left-sided pleural effusion and a hemothorax needs to be considered. Finally, because of the patient is postop, he is at higher risk for VTE and PE needs to be excluded. 2. COPD with mild bronchospasm. 3. Left-sided rib fractures with pleuritic chest pain. 4. AAA endovascular repair and bilateral groin cutdowns on 12/11/2017. 5. Urine culture positive for Proteus, on Keflex. 6. Constipation. Recommendations: * Check a ventilation/perfusion scan to rule out PEordered by surgery. * Also recommend lower extremity Dopplers. * Check a noncontrast CT scan of the sinuses to rule out sinusitis. * Please check a noncontrast CT scan of the chest to rule out hemothorax and further evaluation of the interstitial findings on chest x-ray. * Nebs/total respiratory care. * Nebulizer treatments every 4 hours while awake. * Mucomyst with nebulizer treatments twice daily. * Continue Mucinex. * Continue incentive spirometry. * Acapella therapy -respiratory aware. * Nasal saline and Flonase to be started today. * Claritin 10 mg daily. * Start prednisone 40 mg daily, will taper quickly. * Bowel regimen for constipation. * Medicine consulted for ongoing management of medical issues. * DVT prophylaxis at all times. * Thank you for the consult. Will follow along with you provide further recommendations as necessary. Please call with any questions. Consult Acknowledgment - Thank you for your consult request. August Diaz 12/15/17 1004: Assessment/Plan Other Findings/Comments: Went into this note by mistake, and above are pulmonology consult recommendations. Consult Acknowledgment - Thank you for your consult request.
[2017-12-15 11:14] LABS: ABSOLUTE BASOPHIL COUNT 0.1 /CUMM (0.0-0.2); ABSOLUTE EOSINOPHIL COUNT 0.5 /CUMM (0.0-0.7); ABSOLUTE GRANULOCYTE CT 7.7 /CUMM (1.4-6.5); ABSOLUTE LYMPH COUNT 1.3 /CUMM (1.2-3.4); BASOPHIL % 0.6 % (0.0-2.0); EOSINOPHIL % 4.5 % (0-5); GRANULOCYTE % 73.3 % (42.2-75.2); MEAN CORPUSCULAR HGB 30.8 PG (27.0-31.0); MEAN CORPUSCULAR HGB CONC 33.7 G/DL (33.0-37.0); MEAN CORPUSCULAR VOLUME 91.3 FL (80.0-94.0); MEAN PLATELET VOLUME 6.5 FL (7.4-10.4); PLATELET COUNT 333 /CUMM (130-400); RBC DISTRIBUTION WIDTH 13.9 % (11.5-14.5); WHITE BLOOD CELL COUNT 10.4 /CUMM (4.8-10.8)
--- NOTE | 2017-12-15 15:03 | ULTRASOUND REPORT ---
EXAMINATION: US TRIPLEX OF LOWER EXTREMITIES, BILATERAL CLINICAL INFORMATION: Lower extremity swelling bilaterally. Rule out DVT. COMPARISON: None TECHNIQUE: Color-flow triplex imaging with spectral analysis and compression Doppler were performed on the lower extremities. FINDINGS: Respiratory variation, normal compression and augmented flow are noted throughout the lower extremities. The visualized common femoral vein, superficial femoral vein, profunda femoral vein, popliteal vein and midcalf peroneal and posterior tibial venous segments show no evidence of deep venous thrombosis. Assessment of the right surgical site (right common femoral vein and greater saphenous vein is somewhat limited as the patient cannot tolerate compression in this region. There is a 8.6 x 2.6 x 2.47 m cystic focus in the right popliteal fossa which is most compatible with a Awad's cyst. IMPRESSION: No evidence of deep venous thrombosis involving the bilateral lower extremities.
--- NOTE | 2017-12-15 15:06 | ULTRASOUND REPORT ---
EXAMINATION: US TRIPLEX UPPER EXTREMITY, RIGHT CLINICAL INFORMATION: Right partial knee swelling. Rule out DVT. COMPARISON: None TECHNIQUE: Color-flow triplex imaging with spectral analysis and compression Doppler was performed on the right upper extremity. FINDINGS: The right internal jugular, subclavian, and axillary veins are patent and free of thrombus. The imaged segment of the right brachiocephalic vein is patent. Spectral doppler waveforms are normal. There is a noncompressible segment of the right brachial vein distally with no significant interim blood flow on color Doppler, consistent with thrombosis. This occurs above the level of the patient's IV catheter. Blood flow is present within one of the brachial veins. Basilic and cephalic veins are patent and compressible. IMPRESSION: Acute deep vein thrombosis within one of the right brachial veins above the level of the patient's IV catheter.
--- NOTE | 2017-12-15 17:14 | NUCLEAR MEDICINE REPORT ---
EXAMINATION: PULMONARY VENTILATION PERFUSION STUDY CLINICAL INFORMATION: Dyspnea and right brachial DVT COMPARISON: No previous lung scan is available for comparison. Radiographs of the chest dated 12/13/2017 are available for comparison. TECHNIQUE: Serial gamma scintillation camera images were obtained over the posterior chest during the single breath, equilibrium rebreathing and washout of 16.0 mCi Xe 133 gas. The patient then received 3.8 mCi Tc-99m MAA intravenously and a 6-view perfusion study was performed. FINDINGS: Ventilation images: On the single breath and equilibrium images there is focally absent ventilation at the right lung base. The distribution of activity within the lungs is otherwise homogeneous. During the equilibrium phase there is filling in of the defect at the right lung base. During the washout phase there is moderate retention at the right lung base but otherwise good washout in the other lung regions. Perfusion images: No segmental perfusion defects are present. No segmental perfusion defects are present. There is moderately diminished activity at the right lung base, well matched to the ventilation abnormalities described above. There are additional subsegmental perfusion defects present in the right lung apex, laterally in the left lower lobe, and in the lingula. In addition there is considerable heterogeneity present bilaterally superimposed on these subsegmental defects. The focal abnormalities at the right lung base on the ventilation and perfusion images are well matched, but additional subsegmental perfusion defects present bilaterally do not show corresponding ventilation scan abnormalities. The chest radiograph dated 12/13/2017 shows some bibasilar scarring or atelectasis an some blunting of the left costophrenic angle likely due to some left-sided pleural fluid. There is no abnormality in the chest radiograph the corresponds to the prominent ventilation and perfusion abnormalities at the right lung base noted on this lung scan. IMPRESSION: Intermediate probability of pulmonary embolism. Multiple small subsegmental perfusion defects are present bilaterally that are not matched by ventilation abnormalities. These are superimposed on abnormalities at the right lung base that is likely due to obstructive airway disease no other parenchymal lung disease or atelectasis.
--- NOTE | 2017-12-15 17:28 | CT SCAN REPORT ---
EXAMINATION: CT SINUS WITHOUT CONTRAST CLINICAL INFORMATION: Rule out sinusitis. Congestion. COMPARISON: None TECHNIQUE: Multidetector helical imaging was performed in the axial plane with generation of reformatted acquisitions. DLP: 242 mGy-cm FINDINGS: There is a small retention cyst inferiorly in the left maxillary sinus. The remaining paranasal sinuses are fairly well aerated. A significant leftward nasal septal deviation is present with nasal septal spurring distorting the left inferior turbinate. The TMJs are normal. The orbits are normal in appearance. The imaged mastoid air cells and middle ear cavities are aerated. The remaining maxillofacial soft tissues are unremarkable. The imaged portions of the brain demonstrate no acute abnormality. There is fullness of the pituitary gland within the pituitary fossa. No suprasellar soft tissue abnormality is seen. IMPRESSION: Small retention cyst in the left maxillary sinus. Otherwise, no active sinus disease. Significant leftward nasal septal deviation with nasal septal spurring. Mild fullness of soft tissue in the pituitary fossa for which the possibility of an underlying microadenoma cannot be excluded. No suprasellar soft tissue abnormality. Clinically correlate.
--- NOTE | 2017-12-15 17:54 | CT SCAN REPORT ---
EXAMINATION: CT CHEST WITHOUT CONTRAST CLINICAL INFORMATION: Evaluate for pneumonia or effusion. Shortness of breath with increasing oxygen requirement. COMPARISON: None TECHNIQUE: Multidetector volumetric CT imaging of the chest was done. Axial MIP volume rendering provided. Sagittal and coronal reformatted images were obtained. Patient cannot receive contrast due to CKD. 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 LUNGS: Extensive emphysematous changes are present in both lungs with apical blebs, more so on the right side. A few scattered subcentimeter nodular densities are present within the lungs, measuring up to 4 mm in diameter. There are dependent subsegmental atelectatic changes at the lung bases. No airspace consolidation is seen. There is some mucous plugging in the right lower lobe bronchi. No tree-in-bud centrilobular nodules are visible. MEDIASTINUM: Moderate atherosclerotic wall calcifications present in the thoracic aorta. The main pulmonary artery is abnormally dilated, measuring up to 3.2 cm in diameter, indicative for pulmonary artery hypertension. No mediastinal adenopathy is seen. There is a trace anterior pericardial effusion. PLEURA: There is no pleural effusion. A few small calcified pleural plaques are present bilaterally. AXILLA: No lymphadenopathy. UPPER ABDOMEN: Numerous large cysts are present in the partially imaged kidneys. Small cysts are visible in the liver parenchyma as well. The remaining visualized upper abdominal structures demonstrate no acute abnormality. Moderate vascular calcifications are seen. OSSEOUS STRUCTURES: No acute osseous abnormality is visible. Mild spondylitic changes present. IMPRESSION: No airspace consolidation. Severe emphysema. Few scattered nonspecific small subcentimeter nodules in the lung parenchyma. Imaging findings of pulmonary artery hypertension. Assessment for pulmonary embolic disease cannot be made on this noncontrast study. Trace pericardial effusion. According to the UPDATED 2017 Fleischner Society recommendations, the advised follow-up imaging for solid nodules < 6 mm is: LOW RISK PATIENT: No routine follow-up. HIGH RISK PATIENT: Optional CT at 12 months. Significant cystic disease of the kidneys, partially visualized. Scattered small cysts in the liver parenchyma as well.
[2017-12-15 18:00] VITALS: BP 150/90
--- NOTE | 2017-12-15 18:44 | Event Note ---
Event Note Event Note: 77 YO M PMHx. s/p EVAR for AAA repair, common femoral endarterectomy, iliac stenting, postoperative course complicated by difficult reeves placement, on 4L [place] oxygen had a positive Venous Doppler study of right upper extremity indicating an acute deep vein thrombosis within one of the right brachial veins above the level of the patient's IV catheter. Patient had follow up CT Chest to r/o hemothorax. CT Chest showed trace pericardial effusion but no hemothorax. Patient had MILES which was negative for blood. aPTT ordered and started on IV Heparin 43053 units in D5W per DVT protocol. Notified Dr. Thomas and surgical team. Patient understood need for anticoagulation and had no further questions.
[2017-12-15 19:58] LABS: PTT 23 SEC (25-37)
[2017-12-15 22:11] VITALS: BP 132/80
[2017-12-16 03:54] LABS: PTT 49 SEC (25-37)
[2017-12-16 06:33] VITALS: BP 124/60
--- NOTE | 2017-12-16 07:40 | PN- Housestaff ---
See Addendum Subjective Follow-up For: AAA s/p repair DVT Right upper extremity Subjective: Afebrile overnight. Patient is seen and examined in bed. Patient states he has not had any shortness of breath this morning but yesterday had some difficulty with changing beds yesterday. Patient notes decreased appetite but states he ate dinner last night including clam chowder. Patient is receiving Heparin for a right UE blood clot but denies any pain, tenderness, and swelling in the right arm. Patient otherwise denies any fever, chills, fatigue, abdominal pain, chest pain, diarrhea, and constipation. Review of Systems Constitutional: Reports: see HPI. Objective Last 24 Hrs of Vital Signs/I&O Vital Signs Date Time Temp Pulse Resp B/P B/P Pulse O2 O2 Flow FiO2 Mean Ox Delivery Rate 12/16 0633 97.7 66 22 124/60 91 12/16 0600 91 Nasal 4.0L Cannula 12/16 0000 92 Nasal 4.0L Cannula 12/15 2211 97.7 65 18 132/80 92 Nasal Cannula 12/15 2200 92 Nasal 4.0L Cannula 12/15 1816 92 Nasal 4.0L Cannula 12/15 1800 92 Nasal 4.0L Cannula 12/15 1800 97.5 88 22 150/90 92 Nasal Cannula Intake & Output 12/16 1600 12/16 0800 12/16 0000 Intake Total 490.4 326 Output Total 1175 650 Balance -684.6 -324 Intake, IV 190.4 26 Intake, Oral 300 300 Number 0 Bowel Movements Output, Urine 1175 650 Patient 175 lb Weight Weight Bed scale Measurement Method Physical Exam General Appearance: Alert, Oriented X3, Cooperative Skin: right upper extremity forearm bruising/swelling HEENT: Atraumatic Neck: Supple, No JVD Cardiovascular: Regular Rate, Normal S1, Normal S2 Lungs: decreased breath sounds b/l Abdomen: Soft, No Tenderness Extremities: Normal Pulses, 1+ peripheral edema Assessment/Plan Assessment: CT CHEST WO IV CONTRAST - No airspace consolidation. Severe emphysema. Few scattered nonspecific small subcentimeter nodules in the lung parenchyma. Imaging findings of pulmonary artery hypertension. Assessment for pulmonary embolic disease cannot be made on this noncontrast study. Trace pericardial effusion. US-UNILATERAL VENOUS DOPPLER - Acute deep vein thrombosis within one of the right brachial veins above the level of the patient's IV catheter. CT FACE/SINUS WITHOUT CONT - Small retention cyst in the left maxillary sinus. Otherwise, no active sinus disease. Significant leftward nasal septal deviation with nasal septal spurring. Mild fullness of soft tissue in the pituitary fossa for which the possibility of an underlying microadenoma cannot be excluded. No suprasellar soft tissue abnormality. Clinically correlate. 77-year-old male, active smoker with past medical history of COPD(not on home oxygen), coronary artery disease, prostate cancer status post radiation,left 10th and 11th ribs prior to presentation while havign a near fall, with known abdominal aortic aneurysm and claudication now status post day 4 of elective endovascular abdominal aneurysm repair, right common femur endarterectomy and patch angioplasty along with angioplasty and stenting of the right external iliac artery, now affecting hypoxia and especially when ambulating current saturations 90% on 4 L of nasal cannula. Problem list: 1. Persistent hypoxia s/p EVAR surgery for AAA 2. H/o COPD, not on home oxygen 3. h/o recent left 10th nad 11th rib frature s/p near fall 4. H/o hypothyrodism 5. h/o htn 6. H/o CAD 7. Current Active Smoker #DVT, right upper extremity - Upper Extremity Doppler: indicative of DVT in right brachial vein - Non-contrast CT of chest to r/o hemothorax; no indication of any pulmonary embolism or hemothorax; started on IV Heparin 25,000 units in D5W; following aPTT - CT Face/Sinus to r/o sinusitis; no indication of active sinus related disease except for leftward nasal septal deviation - Pain management for rib pain s/p fracture - Continue TRC nebs; incentive spirometry - Pulmonology consulted; Prednisone 40 mg qd - Encourage PO hydration and nutrition consult for decreased appetite #Home medications - Continue home medications as required - Nicotine patch for smoking cessation. FC DVT PPx. Problem List: 1. AAA (abdominal aortic aneurysm) 2. DVT (deep venous thrombosis) 3. Hypoxia Pain Ratin Pain Location: na Pain Goal: Remain pain free Pain Plan: na Tomorrow's Labs & Rationales: routine labs
--- NOTE | 2017-12-16 07:47 | PN- Vascular Surgery ---
Subjective Subjective: Pt awake and alert Still requiring oxygen, feels short of breath but improved from yesterday No other specific complaints Would like to ambulate more - needs assistance Objective Vital Signs and I&Os Vital Signs Date Time Temp Pulse Resp B/P B/P Pulse O2 O2 Flow FiO2 Mean Ox Delivery Rate 12/16 0633 97.7 66 22 124/60 91 12/16 0000 92 Nasal 4.0L Cannula 12/15 2211 97.7 65 18 132/80 92 Nasal Cannula 12/15 2200 92 Nasal 4.0L Cannula 12/15 1816 92 Nasal 4.0L Cannula 12/15 1800 92 Nasal 4.0L Cannula 12/15 1800 97.5 88 22 150/90 92 Nasal Cannula 12/15 0821 98.7 72 20 130/80 12/15 0814 92 Nasal 4.0L Cannula 12/15 0800 Nasal 4.0L Cannula Intake & Output 12/16 0800 12/16 0000 12/15 1600 12/15 0800 12/15 0000 12/14 1600 Intake Total 326 800 250 100 800 Output Total 225 650 300 350 600 750 Balance -225 -324 500 -100 -500 50 Intake, IV 26 10 Intake, Oral 300 800 240 100 800 Output, Urine 225 650 300 350 600 750 Patient 175 lb Weight Weight Bed scale Measurement Method Physical Exam: VSS, afebrile RR 16 Sat 92% on 4LNC General: alert and oriented times three Chest: bilateral rhonchi - clears with cough, decreased at bases bilaterally, RRR Abd: softly distended Ext: trace edema BLE, warm, good 2+ DP bilaterally, normosensate Wds: both groin incisions look good, sara intact, no erythema or drainage Current Medications: Current Medications Sig/Galdino Start time Last Medication Dose Route Stop Time Status Admin Acetaminophen 650 MG Q6P PRN 12/11 1530 AC PO Acetylcysteine 2 ML BID 12/15 1200 AC 12/15 INH 1805 Albuterol Sulfate 3 ML EVERY 4 HRS/AWAKE 12/15 1999 AC 12/15 INH 2242 Aspirin Buffered 81 MG DAILY 12/12 0900 AC 12/15 PO 0820 Atorvastatin Calcium 40 MG 1700 12/11 1700 AC 12/15 PO 1900 Benzonatate 100 MG TID 12/15 1605 AC 12/15 PO 1859 Bisacodyl 5 MG ONE ONE 12/15 0845 DC 12/15 PO 12/15 0846 1037 Cephalexin 500 MG BID 12/13 1000 AC 12/15 PO 12/22 2100 2123 Diphenhydramine HCl 50 MG AT BEDTIME NEED.. 12/14 1315 AC IV Docusate Sodium 100 MG BID 12/11 2100 AC 12/15 PO 2123 Fluticasone 2 SPRAY DAILY 12/15 1618 AC 12/15 Propionate HANNAH 1900 Fluticasone 2 SPRAY DAILY 12/15 1342 DC Propionate HANNAH Guaifenesin 600 MG Q12 12/14 2222 AC 12/15 PO 2122 Heparin Sodium 3,200 UNIT ONCE ONE 12/16 0430 DC 12/16 (Porcine) IV 12/16 043 0430 Heparin Sodium 0 .STK-MED ONE 12/16 0426 DC (Porcine) .ROUTE Heparin Sodium/ 25,000 UNIT Q24H 12/15 1815 AC 12/16 Dextrose IV 0430 Dextrose/Water 500 ML Labetalol HCl 100 MG DAILY 12/12 0900 AC 12/15 PO 0821 Levothyroxine Sodium 0.025 MG DAILY AC 12/12 0700 AC 12/16 PO 0601 Lidocaine 1 PAT DAILY NEEDED PRN 12/15 0900 AC TOP Loratadine 10 MG DAILY 12/15 1620 AC 12/15 PO 1900 Morphine Sulfate 2 MG Q4-6 PRN PRN 12/11 1530 AC IV Nicotine 21 MG DAILY 12/15 1029 AC 12/15 TOP 1038 Ondansetron HCl 4 MG Q6P PRN 12/11 1530 AC IV Oxycodone/ 1 TAB Q4P PRN 12/11 1530 AC 12/13 Acetaminophen PO 1821 Oxycodone/ 2 TAB Q4P PRN 12/11 1530 AC Acetaminophen PO Prednisone 40 MG DAILY 12/15 1616 AC 12/15 PO 1859 Sodium Chloride 2 SPRAY Q4P PRN 12/15 1630 AC HANNAH Sodium Chloride 2 SPRAY Q4P PRN 12/15 1345 DC HANNAH Tiotropium [place] 1 PUF DAILY 12/12 0900 AC 12/15 INH 0821 Zolpidem Tartrate 5 MG AT BEDTIME 12/13 0115 AC 12/15 PO 2123 Results Last 48 Hours of Labs: Laboratory Tests 12/16 12/15 12/15 0324 1850 1100 Chemistry Sodium (137 - 145 mmol/L) 135 L Potassium (3.5 - 5.1 mmol/L) 4.6 Chloride (98 - 107 mmol/L) 102 Carbon Dioxide (22 - 30 mmol/L) 27 Anion Gap (5 - 16) 5 BUN (9 - 20 mg/dL) 26 H Creatinine (0.7 - 1.2 mg/dL) 1.2 Estimated GFR (>60 ml/min) 59 L BUN/Creatinine Ratio (7 - 25 %) 21.7 Phosphorus (2.5 - 4.5 mg/dL) 3.0 Magnesium (1.6 - 2.3 mg/dL) 1.9 Coagulation APTT (25 - 37 SEC) 49 H 23 L Hematology CBC w Diff NO MAN DIFF REQ WBC (4.8 - 10.8 /CUMM) 10.4 RBC (4.70 - 6.10 /CUMM) 3.50 L Hgb (14.0 - 18.0 G/DL) 10.8 L Hct (42 - 52 %) 32.0 L MCV (80.0 - 94.0 FL) 91.3 MCH (27.0 - 31.0 PG) 30.8 MCHC (33.0 - 37.0 G/DL) 33.7 RDW (11.5 - 14.5 %) 13.9 Plt Count (130 - 400 /CUMM) 333 MPV (7.4 - 10.4 FL) 6.5 L Gran % (42.2 - 75.2 %) 73.3 Lymphocytes % (20.5 - 51.1 %) 12.1 L Monocytes % (1.7 - 9.3 %) 9.5 H Eosinophils % (0 - 5 %) 4.5 Basophils % (0.0 - 2.0 %) 0.6 Absolute Granulocytes (1.4 - 6.5 /CUMM) 7.7 H Absolute Lymphocytes (1.2 - 3.4 /CUMM) 1.3 Absolute Monocytes (0.10 - 0.60 /CUMM) 1.0 H Absolute Eosinophils (0.0 - 0.7 /CUMM) 0.5 Absolute Basophils (0.0 - 0.2 /CUMM) 0.1 08/24 1025 Blood Gas pH (7.35 - 7.45 PH) 7.48 H pCO2 (35 - 45 TORR) 23 L pO2 (80 - 100 TORR) 87 HCO3 (21 - 28 MEQ/L) 17 L ABG O2 Sat (Measured) (>96.0 %) 97.0 P-50 (Temp Corrected) N O2 Concentration % 4LPM O2 Delivery Method NC Miscellaneous Phlebotomy Draw Site RIGHT RADIAL Recent Imaging Studies: Bilateral venous dopplers, negative BLE, DVT noted to right brachial vein VQ -Intermediate probability of pulmonary embolism. Multiple small subsegmental perfusion defects are present bilaterally that are not matched by ventilation abnormalities. These are superimposed on abnormalities at the right lung base that is likely due to obstructive airway disease no other parenchymal lung disease or atelectasis. Assessment/Plan Assessment/Plan 77yo male pod 5 s/p endo AAA repair/iliac stent with bilateral vein cutdown with post op hypoxia/increased oxygen requirement, UTI From a surgical standpoint he looks good Wound looks good, good pulses BLE ?post op DVT/PE hep drip begun per medical team Management per medical team abx for UTI per Urology Recommend increased ambulation/PT
[2017-12-16 13:11] LABS: PTT 78 SEC (25-37)
--- NOTE | 2017-12-16 13:23 | PN- Pulmonary ---
Subjective HPI/Critical Care Issues: The patient is awake and alert. He continues to have chest congestion and shortness of breath with exertion. He continues to require 4 L nasal oxygen. Objective Current Medications: Current Medications Sig/Galdino Start time Last Medication Dose Route Stop Time Status Admin Acetaminophen 650 MG Q6P PRN 12/11 1530 AC PO Acetylcysteine 2 ML BID 12/15 1200 AC 12/16 INH 0856 Albuterol Sulfate 3 ML EVERY 4 HRS/AWAKE 12/14 2000 AC 12/16 INH 0856 Aspirin Buffered 81 MG DAILY 12/12 0900 AC 12/16 PO 0929 Atorvastatin Calcium 40 MG 1700 12/11 1700 AC 12/15 PO 1900 Benzonatate 100 MG TID 12/15 1605 AC 12/16 PO 0928 Cephalexin 500 MG BID 12/13 1000 AC 12/16 PO 12/22 2100 0929 Diphenhydramine HCl 50 MG AT BEDTIME NEED.. 12/14 1315 AC IV Docusate Sodium 100 MG BID 12/11 2100 AC 12/16 PO 0929 Fluticasone 2 SPRAY DAILY 12/15 1618 AC 12/16 Propionate HANNAH 0929 Fluticasone 2 SPRAY DAILY 12/15 1342 DC Propionate HANNAH Guaifenesin 600 MG Q12 12/14 2222 AC 12/16 PO 0929 Heparin Sodium 3,200 UNIT ONCE ONE 12/16 0430 DC 12/16 (Porcine) IV 12/16 0431 0430 Heparin Sodium 0 .STK-MED ONE 12/16 0426 DC (Porcine) .ROUTE Heparin Sodium/ 25,000 UNIT Q24H 12/15 1815 AC 12/16 Dextrose IV 0430 Dextrose/Water 500 ML Labetalol HCl 100 MG DAILY 12/12 0900 AC 12/16 PO 0929 Levothyroxine Sodium 0.025 MG DAILY AC 12/12 0700 AC 12/16 PO 0601 Lidocaine 1 PAT DAILY NEEDED PRN 12/15 09 AC TOP Loratadine 10 MG DAILY 12/15 1620 AC 12/16 PO 0929 Morphine Sulfate 2 MG Q4-6 PRN PRN 12/11 1530 AC IV Nicotine 21 MG DAILY 12/15 1029 AC 12/16 TOP 0930 Ondansetron HCl 4 MG Q6P PRN 12/11 1530 AC IV Oxycodone/ 1 TAB Q4P PRN 12/11 1530 AC 12/13 Acetaminophen PO 1821 Oxycodone/ 2 TAB Q4P PRN 12/11 1530 AC Acetaminophen PO Prednisone 40 MG DAILY 12/15 1616 AC 12/16 PO 0929 Sodium Chloride 2 SPRAY Q4P PRN 12/15 1630 AC HANNAH Sodium Chloride 2 SPRAY Q4P PRN 12/15 1345 DC HANNAH Tiotropium [place] 1 PUF DAILY 12/12 09 AC 12/16 INH 0930 Zolpidem Tartrate 5 MG AT BEDTIME 12/13 0115 AC 12/15 PO 2123 Vital Signs & I&O Last 24 Hrs of Vitals and I&O: Vital Signs Date Time Temp Pulse Resp B/P B/P Pulse O2 O2 Flow FiO2 Mean Ox Delivery Rate 12/16 0929 65 124/60 12/16 0903 87 Nasal 2.0L Cannula 12/16 08 91 Nasal 4.0L Cannula 12/16 0800 91 Nasal 4.0L Cannula 12/16 0633 97.7 66 22 124/60 91 12/16 0600 91 Nasal 4.0L Cannula 12/16 0000 92 Nasal 4.0L Cannula 12/15 2211 97.7 65 18 132/80 92 Nasal Cannula 12/15 2200 92 Nasal 4.0L Cannula 12/15 1816 92 Nasal 4.0L Cannula 12/15 1800 92 Nasal 4.0L Cannula 12/15 1800 97.5 88 22 150/90 92 Nasal Cannula Intake & Output 12/16 1600 12/16 0800 12/16 0000 Intake Total 490.4 326 Output Total 125 1175 650 Balance -125 -684.6 -324 Intake, IV 190.4 26 Intake, Oral 300 300 Number 0 Bowel Movements Output, Urine 125 1175 650 Patient 175 lb Weight Weight Bed scale Measurement Method Physical Exam General Appearance: no apparent distress, alert, awake, comfortable Head: atraumatic, normal appearance Eyes: Bilateral: PERRL. Neck: supple Respiratory: no respiratory distress, quiet respiration, accessory muscle use, wheezing Cardiovascular: regular rate/rhythm Gastrointestinal: soft, non-tender Extremities: no edema Skin: intact, normal color, warm/dry Results Last 24 Hrs of Lab Results: Laboratory Tests 12/16/17 1100: APTT 78 H 12/16/17 0324: APTT 49 H 12/15/17 1850: APTT [address] Scan Findings: No airspace consolidation. Severe emphysema. Few scattered nonspecific small subcentimeter nodules in the lung parenchyma. Imaging findings of pulmonary artery hypertension. Assessment for pulmonary embolic disease cannot be made on this noncontrast study. Trace pericardial effusion. CT sinuses:Small retention cyst in the left maxillary sinus. Otherwise, no active sinus disease. Significant leftward nasal septal deviation with nasal septal spurring. Mild fullness of soft tissue in the pituitary fossa for which the possibility of an underlying microadenoma cannot be excluded. No suprasellar soft tissue abnormality. Clinically correlate. Radiology Findings: VQ scan: Intermediate probability of pulmonary embolism. Multiple small subsegmental perfusion defects are present bilaterally that are not matched by ventilation abnormalities. These are superimposed on abnormalities at the right lung base that is likely due to obstructive airway disease no other parenchymal lung disease or atelectasis. Impression/Plan Impression/Plan Impression/Plan: 1. Hypoxemic respiratory failure, secondary to severe emphysema/chronic lung disease. 2. Right upper extremity DVT, rule out pulmonary embolism, on Heparin. 3. Pulmonary nodules which will require follow-up as per the Fleischner criteria. 4. Recent rib fractures without significant hemothorax. 5. AAA endovascular repair and bilateral groin cutdowns on 12/11/2017. 6. Urine culture positive for Proteus, on Keflex. 7. Constipation. Recommendations: * Continue heparin drip. * Please discuss management of upper extremity DVT with vascular surgery as this tends to be different than lower extremity DVT management. * Nebs/total respiratory care. * Nebulizer treatments every 4 hours while awake. * Mucomyst with nebulizer treatments twice daily. * Continue Mucinex. * Continue incentive spirometry. * Acapella therapy -respiratory aware. * Nasal saline and Flonase to be started today. * Claritin 10 mg daily. * Start prednisone 40 mg daily, will taper quickly. * Bowel regimen for constipation. * Medicine consulted for ongoing management of medical issues. * DVT prophylaxis at all times.
[2017-12-16 15:08] VITALS: BP 142/66
[2017-12-16 22:15] VITALS: BP 122/64
[2017-12-17 01:50] LABS: PTT 52 SEC (25-37)
[2017-12-17 06:19] VITALS: BP 144/80
[2017-12-17 06:20] VITALS: BP 158/66
--- NOTE | 2017-12-17 08:00 | PN- Housestaff ---
Subjective Follow-up For: AAA s/p repair DVT Right upper extremity Subjective: I visited and examined the patient this morning, he was lying back in his bed, alert and oriented 3, in no acute distress. The patient reports that she has pain and soreness in his left flank area which is due to the bruising which has happened to his lower ribs previously. He does not report any other complaints neither does the nurse. His PTT was greater than 120, so heparin will be held for 1 hour, and decreased to 4 U/h. He denies any chest pain, shortness of breath, lightheadedness, dizziness, abdominal pain, constipation, diarrhea, dysuria, frequency. Review of Systems Constitutional: Reports: see HPI. Objective Last 24 Hrs of Vital Signs/I&O Vital Signs Date Time Temp Pulse Resp B/P B/P Pulse O2 O2 Flow FiO2 Mean Ox Delivery Rate 12/17 1610 92 Nasal 4.0L Cannula 12/17 1522 98.3 69 20 110/65 94 Room Air 12/17 0920 64 158/66 12/17 0812 92 Nasal 4.0L Cannula 12/17 0800 91 Nasal 3.0L Cannula 12/17 0800 91 Nasal 3.0L Cannula 12/17 0620 98.8 64 20 158/66 94 12/17 0600 94 Nasal 4.0L Cannula 12/17 0000 93 Nasal 4.0L Cannula 12/16 2215 97.7 69 20 122/64 93 12/16 2200 92 Nasal 4.0L Cannula Intake & Output 12/17 1600 12/17 0800 12/17 0000 Intake Total 546.4 476.8 Output Total 102 856 9448 Balance -800 -153.6 -923.2 Intake, IV 246.4 116.8 Intake, Oral 300 360 Number 0 1 Bowel Movements Output, Urine 273 482 8492 Physical Exam General Appearance: Alert, Oriented X3, Cooperative, No Acute Distress Skin: No Rashes Skin Temp/Moisture Exam: Warm/Dry Cardiovascular: Regular Rate, Normal S1, Normal S2 Lungs: Clear to Auscultation, Normal Air Movement Abdomen: Normal Bowel Sounds, Soft, No Tenderness Extremities: No Clubbing, No Cyanosis Assessment/Plan Assessment: CT CHEST WO IV CONTRAST - No airspace consolidation. Severe emphysema. Few scattered nonspecific small subcentimeter nodules in the lung parenchyma. Imaging findings of pulmonary artery hypertension. Assessment for pulmonary embolic disease cannot be made on this noncontrast study. Trace pericardial effusion. US-UNILATERAL VENOUS DOPPLER - Acute deep vein thrombosis within one of the right brachial veins above the level of the patient's IV catheter. CT FACE/SINUS WITHOUT CONT - Small retention cyst in the left maxillary sinus. Otherwise, no active sinus disease. Significant leftward nasal septal deviation with nasal septal spurring. Mild fullness of soft tissue in the pituitary fossa for which the possibility of an underlying microadenoma cannot be excluded. No suprasellar soft tissue abnormality. Clinically correlate. 77-year-old male, active smoker with past medical history of COPD(not on home oxygen), coronary artery disease, prostate cancer status post radiation,left 10th and 11th ribs prior to presentation while havign a near fall, with known abdominal aortic aneurysm and claudication now status post day 4 of elective endovascular abdominal aneurysm repair, right common femur endarterectomy and patch angioplasty along with angioplasty and stenting of the right external iliac artery, now affecting hypoxia and especially when ambulating current saturations 90% on 4 L of nasal cannula. Problem list: 1. Persistent hypoxia s/p EVAR surgery for AAA 2. H/o COPD, not on home oxygen 3. h/o recent left 10th nad 11th rib frature s/p near fall 4. H/o hypothyrodism 5. h/o htn 6. H/o CAD 7. Current Active Smoker #DVT, right upper extremity - Upper Extremity Doppler: indicative of DVT in right brachial vein - Non-contrast CT of chest to r/o hemothorax; no indication of any pulmonary embolism or hemothorax; started on IV Heparin 25,000 units in D5W; following aPTT - CT Face/Sinus to r/o sinusitis; no indication of active sinus related disease except for leftward nasal septal deviation - Pain management for rib pain s/p fracture - Continue TRC nebs; incentive spirometry - Pulmonology consulted; Prednisone 40 mg qd - Encourage PO hydration and nutrition consult for decreased appetite -Eliquis 10 mg p.o. twice daily was started #Home medications - Continue home medications as required - Nicotine patch for smoking cessation. FC DVT PPx. Problem List: 1. AAA (abdominal aortic aneurysm) 2. DVT (deep venous thrombosis) 3. Hypoxia Pain Ratin Pain Location: Not applicable Pain Goal: Remain pain free Pain Plan: As indicated Tomorrow's Labs & Rationales: As indicated
--- NOTE | 2017-12-17 08:30 | PN- Pulmonary ---
Subjective HPI/Critical Care Issues: The patient is awake and alert. He continues to require 4 L O2 nasal cannula. He is angry over his diet restriction. Despite this, the patient is feeling significantly improved noting he was able to cough up a significant amount of sputum and feels less short of breath. His nasal congestion has improved as well. He has not been able to ambulate much, and is only getting up to go to the commode. He had a bowel movement and feels less abdominal distention. Objective Current Medications: Current Medications Sig/Galdino Start time Last Medication Dose Route Stop Time Status Admin Acetaminophen 650 MG Q6P PRN 12/11 1530 AC PO Acetylcysteine 2 ML BID 12/15 1200 AC 12/16 INH 2030 Albuterol Sulfate 3 ML EVERY 4 HRS/AWAKE 12/14 2000 AC 12/17 INH 0811 Aspirin Buffered 81 MG DAILY 12/12 0900 AC 12/16 PO 0929 Atorvastatin Calcium 40 MG 1700 12/11 1700 AC 12/16 PO 1638 Benzonatate 100 MG TID 12/15 1605 AC 12/16 PO 2156 Cephalexin 500 MG BID 12/13 1000 AC 12/16 PO 12/22 2100 2155 Diphenhydramine HCl 50 MG AT BEDTIME NEED.. 12/14 1315 AC IV Docusate Sodium 100 MG BID 12/11 2100 AC 12/16 PO 2155 Fluticasone 2 SPRAY DAILY 12/15 1618 AC 12/16 Propionate HANNAH 0929 Guaifenesin 600 MG Q12 12/14 2222 AC 12/16 PO 2155 Heparin Sodium 0 .STK-MED ONE 12/17 0213 DC (Porcine) .ROUTE Heparin Sodium 3,200 UNIT ONCE ONE 12/17 0212 DC 12/17 (Porcine) IV 12/17 021 0224 Heparin Sodium/ 25,000 UNIT Q24H 12/15 1815 AC 12/17 Dextrose IV 0225 Dextrose/Water 500 ML Labetalol HCl 100 MG DAILY 12/12 0900 AC 12/16 PO 09 Levothyroxine Sodium 0.025 MG DAILY AC 12/12 0700 AC 12/17 PO 0614 Lidocaine 1 PAT DAILY NEEDED PRN 12/15 0900 AC TOP Loratadine 10 MG DAILY 12/15 1620 AC 12/16 PO 0929 Morphine Sulfate 2 MG Q4-6 PRN PRN 12/11 1530 AC IV Nicotine 21 MG DAILY 12/15 1029 AC 12/16 TOP 0930 Ondansetron HCl 4 MG Q6P PRN 12/11 1530 AC IV Oxycodone/ 1 TAB Q4P PRN 12/11 1530 AC 12/13 Acetaminophen PO 1821 Oxycodone/ 2 TAB Q4P PRN 12/11 1530 AC Acetaminophen PO Prednisone 40 MG DAILY 12/15 1616 AC 12/16 PO 0929 Sodium Chloride 2 SPRAY Q4P PRN 12/15 1630 AC HANNAH Tiotropium [place] 1 PUF DAILY 12/12 0900 AC 12/16 INH 0930 Zolpidem Tartrate 5 MG AT BEDTIME 12/13 0115 AC 12/16 PO 2155 Vital Signs & I&O Last 24 Hrs of Vitals and I&O: Vital Signs Date Time Temp Pulse Resp B/P B/P Pulse O2 O2 Flow FiO2 Mean Ox Delivery Rate 12/17 0812 92 Nasal 4.0L Cannula 12/17 0620 98.8 64 20 158/66 94 12/17 0600 94 Nasal 4.0L Cannula 12/17 0000 93 Nasal 4.0L Cannula 12/16 2215 97.7 69 20 122/64 93 12/16 2200 92 Nasal 4.0L Cannula 12/16 1610 93 Nasal 4.0L Cannula 12/16 1508 97.7 72 18 142/66 92 12/16 1400 92 Nasal 4.0L Cannula 12/16 0929 65 124/60 12/16 0903 87 Nasal 2.0L Cannula Intake & Output 12/17 1600 12/17 0800 12/17 0000 Intake Total 546.4 476.8 Output Total 700 1400 Balance -153.6 -923.2 Intake, IV 246.4 116.8 Intake, Oral 300 360 Number 0 1 Bowel Movements Output, Urine 700 1400 Physical Exam General Appearance: no apparent distress, alert, awake, comfortable Head: atraumatic, normal appearance Eyes: Bilateral: PERRL. Neck: supple Respiratory: no respiratory distress, quiet respiration, accessory muscle use, wheezing Cardiovascular: regular rate/rhythm Gastrointestinal: soft, non-tender Extremities: no edema Skin: intact, normal color, warm/dry Results Last 24 Hrs of Lab Results: Laboratory Tests 12/17/17 0600: APTT Cancelled 12/17/17 0104: APTT 52 H 08/25/18 1100: APTT 78 H Impression/Plan Impression/Plan Impression/Plan: 1. Hypoxemic respiratory failure, secondary to severe emphysema/chronic lung disease. 2. Right upper extremity DVT, rule out pulmonary embolism, on Heparin. 3. Pulmonary nodules which will require follow-up as per the Fleischner criteria. 4. Recent rib fractures without hemothorax. 5. AAA endovascular repair and bilateral groin cutdowns on 12/11/2017. 6. Urine culture positive for Proteus, on Keflex. 7. Constipation - improved. Recommendations: * Continue heparin drip for now. * Please discuss management of upper extremity DVT with vascular surgery as this tends to be different than lower extremity DVT management. dent remover to NOAC? * Nebulizer treatments every 4 hours while awake. * Stop Mucomyst. * Continue Mucinex. * Continue incentive spirometry. * Acapella therapy - to continue * Nasal saline and Flonase to be continued. * Claritin 10 mg daily. * Prednisone 40 mg today, will taper quickly. * Bowel regimen for constipation to continue. * DVT prophylaxis at all times. * Ambulate -discussed with nursing, she will ambulate the patient on supplemental oxygen and O2 tank around the floor later today. * Plan of care discussed with housestaff.
[2017-12-17 09:10] LABS: ABSOLUTE BASOPHIL COUNT 0 /CUMM (0.0-0.2); ABSOLUTE EOSINOPHIL COUNT 0.1 /CUMM (0.0-0.7); ABSOLUTE GRANULOCYTE CT 12.7 /CUMM (1.4-6.5); ABSOLUTE LYMPH COUNT 1.8 /CUMM (1.2-3.4); ABSOLUTE MONOCYTE COUNT 1.1 /CUMM (0.10-0.60); BASOPHIL % 0.2 % (0.0-2.0); EOSINOPHIL % 0.8 % (0-5); GRANULOCYTE % 80.4 % (42.2-75.2); HEMATOCRIT 30.6 % (42-52); MEAN CORPUSCULAR HGB 30.9 PG (27.0-31.0); MEAN CORPUSCULAR HGB CONC 33.5 G/DL (33.0-37.0); MEAN CORPUSCULAR VOLUME 92.4 FL (80.0-94.0); MEAN PLATELET VOLUME 6.5 FL (7.4-10.4); PLATELET COUNT 439 /CUMM (130-400); RBC DISTRIBUTION WIDTH 13.9 % (11.5-14.5); RED BLOOD CELL CT 3.32 /CUMM (4.70-6.10)
[2017-12-17 09:33] LABS: PTT > 120 SEC (25-37)
[2017-12-17 09:34] LABS: WHITE BLOOD CELL COUNT 15.8 /CUMM (4.8-10.8)
--- NOTE | 2017-12-17 10:26 | PN- Vascular Surgery ---
Subjective Subjective: Patient feels well today. States that after respiratory treatment last night he had a "large productive cough" and his sinuses as well as his chest congestion improved. He states it has remained clear and he notes less difficulty breathing and no chest discomfort. He denies abdominal pain, nausea and vomitting. He offers no other complaints at this time. Objective Vital Signs and I&Os Vital Signs Date Time Temp Pulse Resp B/P B/P Pulse O2 O2 Flow FiO2 Mean Ox Delivery Rate 12/17 09 64 158/66 12/17 0812 92 Nasal 4.0L Cannula 12/17 0620 98.8 64 20 158/66 94 12/17 0600 94 Nasal 4.0L Cannula 12/17 0000 93 Nasal 4.0L Cannula 12/16 2215 97.7 69 20 122/64 93 12/16 2200 92 Nasal 4.0L Cannula 12/16 1610 93 Nasal 4.0L Cannula 12/16 1508 97.7 72 18 142/66 92 12/16 1400 92 Nasal 4.0L Cannula Intake & Output 12/17 1600 12/17 0812/17 0000 12/16 1600 12/16 0800 12/16 0000 Intake Total 546.4 476.8 800 490.4 326 Output Total 700 6451 432 3561 650 Balance -153.6 -923.2 325 -684.6 -324 Intake, IV 246.4 116.8 190.4 26 Intake, Oral 300 360 800 300 300 Number 0 1 1 0 Bowel Movements Output, Urine 700 9804 633 3706 650 Patient 175 lb Weight Weight Bed scale Measurement Method Physical Exam: VSS, afebrile RR 20 Sat 92-94% on 4LNC General: alert and oriented times three Pulm: bilateral rhonchi - clears with cough, decreased at bases bilaterally, RRR Abd: softly distended Ext: trace edema BLE, warm, good 2+ DP bilaterally, neuro status intact, calves soft bilaterally Surgical site: groin incisions without drainage, erythema or swelling, sara intact Assessment/Plan Assessment/Plan 77yo male pod 6 s/p endo AAA repair/iliac stent with bilateral vein cutdown with post op hypoxia/increased oxygen requirement, UTI, RUE DVT From a surgical standpoint patient continues to do well Continue to keep wound clean and dry Anticipate staple removal on post op day 14 Recommend increased ambulation and PT treatments HYPOXIA Continue current treatment as outlined by pulmonology RUE DVT hep drip begun per medical team *dispatch 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 Salazar, he recommends at minimum a 3 month course of either eliquis or xarelto upon hospital discharge* UTI per Urology, recommend Keflex x 1 week
[2017-12-17 15:22] VITALS: BP 110/65
[2017-12-17 22:19] VITALS: BP 122/60
[2017-12-18 07:01] VITALS: BP 100/60
--- NOTE | 2017-12-18 07:54 | PN- Housestaff ---
See Addendum Subjective Follow-up For: AAA s/p repair DVT Right upper extremity Subjective: Afebrile overnight. Patient is seen and examined in bed sitting up while eating breakfast. Patient is on 4 L NC oxygen but states he feels ready to go home today as he notes decreased shortness of breath. Patient notes his right arm swelling and bruising has decreased. Patient states he has accomodations at home , including a walker/cane, if needed. Patient otherwise denies any diarrhea, constipation, chest pain, abdominal pain, n/v, and dizziness. Review of Systems Constitutional: Reports: see HPI. Objective Last 24 Hrs of Vital Signs/I&O Vital Signs Date Time Temp Pulse Resp B/P B/P Pulse O2 O2 Flow FiO2 Mean Ox Delivery Rate 12/18 1650 96 Nasal 3.0L Cannula 12/18 1428 97.6 71 20 122/60 94 Nasal 3.0L Cannula 12/18 1400 93 Nasal 3.0L Cannula 12/18 1302 94 Nasal 3.0L Cannula 12/18 0956 51 100/60 12/18 0908 95 Nasal 4.0L Cannula 12/18 0800 91 Nasal 3.0L Cannula 12/18 0800 91 Nasal 3.0L Cannula 12/18 0701 98.6 51 20 100/60 95 12/18 0600 98 Nasal 4.0L Cannula 12/18 0000 95 Nasal 4.0L Cannula 12/17 2219 98.1 73 20 122/60 96 Nasal Cannula 12/17 2200 95 Nasal 4.0L Cannula Intake & Output 12/18 1600 12/18 0800 12/18 0000 Intake Total 800 240 Output Total 400 125 125 Balance 400 -125 115 Intake, Oral 800 240 Number 1 Bowel Movements Output, Urine 400 125 125 Physical Exam General Appearance: Alert, Oriented X3, Cooperative, No Acute Distress Skin: No Rashes, No Breakdown HEENT: Atraumatic Neck: Supple, No JVD Cardiovascular: Regular Rate, Normal S1, Normal S2 Lungs: Clear to Auscultation, 3L NC oxygen Abdomen: Soft, No Tenderness Neurological: Normal Speech Extremities: Normal Pulses Assessment/Plan Assessment: CT CHEST WO IV CONTRAST - No airspace consolidation. Severe emphysema. Few scattered nonspecific small subcentimeter nodules in the lung parenchyma. Imaging findings of pulmonary artery hypertension. Assessment for pulmonary embolic disease cannot be made on this noncontrast study. Trace pericardial effusion. US-UNILATERAL VENOUS DOPPLER - Acute deep vein thrombosis within one of the right brachial veins above the level of the patient's IV catheter. CT FACE/SINUS WITHOUT CONT - Small retention cyst in the left maxillary sinus. Otherwise, no active sinus disease. Significant leftward nasal septal deviation with nasal septal spurring. Mild fullness of soft tissue in the pituitary fossa for which the possibility of an underlying microadenoma cannot be excluded. No suprasellar soft tissue abnormality. Clinically correlate. 77-year-old male, active smoker with past medical history of COPD(not on home oxygen), coronary artery disease, prostate cancer status post radiation,left 10th and 11th ribs prior to presentation while havign a near fall, with known abdominal aortic aneurysm and claudication now status post day 4 of elective endovascular abdominal aneurysm repair, right common femur endarterectomy and patch angioplasty along with angioplasty and stenting of the right external iliac artery, now affecting hypoxia and especially when ambulating current saturations 90% on 4 L of nasal cannula. #DVT, right upper extremity - Upper Extremity Doppler: indicative of DVT in right brachial vein - Non-contrast CT of chest to r/o hemothorax; no indication of any pulmonary embolism or hemothorax; started on IV Heparin 25,000 units in D5W; following aPTT - CT Face/Sinus to r/o sinusitis; no indication of active sinus related disease except for leftward nasal septal deviation - Pain management for rib pain s/p fracture - Continue TRC nebs; incentive spirometry - Pulmonology consulted; Prednisone 40 mg qd, taper as outpatient - Encourage PO hydration and nutrition consult for decreased appetite - Eliquis 10 mg p.o. twice daily was started - PT rec. home physical therapy #Home medications - Continue home medications as required - Nicotine patch for smoking cessation. FC DVT PPx. Problem List: 1. AAA (abdominal aortic aneurysm) 2. DVT (deep venous thrombosis) 3. Hypoxia Pain Ratin Pain Location: na Pain Goal: Remain pain free Pain Plan: na Tomorrow's Labs & Rationales: routine
--- NOTE | 2017-12-18 08:25 | PN- Vascular Surgery ---
Surgical Brief Attending Note Brief Attending Note: pt seen and examined. has remained in hospital for o2 requirements. This am says breathing feels better. pt would like to go home. groins are c/d/i. feet wwp. labs reviewed. on abx per urology for uti. fu with me 2 weeks from discharge for staple removal
[2017-12-18 09:08] LABS: ABSOLUTE BASOPHIL COUNT 0.1 /CUMM (0.0-0.2); ABSOLUTE EOSINOPHIL COUNT 0.1 /CUMM (0.0-0.7); ABSOLUTE GRANULOCYTE CT 12.9 /CUMM (1.4-6.5); ABSOLUTE LYMPH COUNT 1.9 /CUMM (1.2-3.4); ABSOLUTE MONOCYTE COUNT 1.4 /CUMM (0.10-0.60); BASOPHIL % 0.4 % (0.0-2.0); EOSINOPHIL % 0.5 % (0-5); HEMATOCRIT 29.4 % (42-52); MEAN CORPUSCULAR HGB CONC 33.9 G/DL (33.0-37.0); MEAN CORPUSCULAR VOLUME 91.5 FL (80.0-94.0); MEAN PLATELET VOLUME 6.8 FL (7.4-10.4); PLATELET COUNT 468 /CUMM (130-400); RED BLOOD CELL CT 3.21 /CUMM (4.70-6.10); WHITE BLOOD CELL COUNT 16.4 /CUMM (4.8-10.8)
--- NOTE | 2017-12-18 10:33 | PN- Pulmonary ---
Subjective HPI/Critical Care Issues: The patient is awake and alert. He is feeling significantly improved, noting his dyspnea on exertion is better. The patient remains on 4 L nasal cannula. He is off heparin and now on Eliquis. Objective Current Medications: Current Medications Sig/Galdino Start time Last Medication Dose Route Stop Time Status Admin Acetaminophen 650 MG Q6P PRN 12/11 1530 AC PO Acetylcysteine 2 ML BID 12/15 1200 DC 12/17 INH 1205 Albuterol Sulfate 3 ML EVERY 4 HRS/AWAKE 12/14 2000 AC 12/18 INH 0826 Apixaban 10 MG BID 12/17 1258 AC 12/18 PO 0954 Aspirin Buffered 81 MG DAILY 12/12 0900 AC 12/18 PO 0954 Atorvastatin Calcium 40 MG 1700 12/11 1700 AC 12/17 PO 1811 Benzonatate 100 MG TID 12/15 1605 AC 12/18 PO 0955 Cephalexin 500 MG BID 12/13 1000 DC 12/17 PO 12/22 2100 0921 Diphenhydramine HCl 50 MG AT BEDTIME NEED.. 12/14 1315 AC IV Docusate Sodium 100 MG BID 12/11 2100 AC 12/18 PO 0954 Fluticasone 2 SPRAY DAILY 12/15 1618 AC 12/18 Propionate HANNAH 0954 Guaifenesin 600 MG Q12 12/14 2222 AC 12/18 PO 0954 Heparin Sodium/ 25,000 UNIT Q24H 12/15 1815 DC 12/17 Dextrose IV 12/17 1634 0225 Dextrose/Water 500 ML Labetalol HCl 100 MG DAILY 12/12 0900 AC 12/17 PO 0920 Levothyroxine Sodium 0.025 MG DAILY AC 12/12 0700 AC 12/18 PO 0639 Lidocaine 1 PAT DAILY NEEDED PRN 12/15 0900 AC TOP Loratadine 10 MG DAILY 12/15 1620 AC 12/18 PO 0954 Morphine Sulfate 2 MG Q4-6 PRN PRN 12/11 1530 AC IV Nicotine 21 MG DAILY 12/15 1029 AC 12/18 TOP 0955 Ondansetron HCl 4 MG Q6P PRN 12/11 1530 AC IV Oxycodone/ 1 TAB Q4P PRN 12/11 1530 AC 12/13 Acetaminophen PO 1821 Oxycodone/ 2 TAB Q4P PRN 12/11 1530 AC Acetaminophen PO Prednisone 40 MG ONCE ONE 12/17 1330 CAN PO 12/17 1331 Prednisone 40 MG DAILY 12/15 1616 AC 12/18 PO 0954 Sodium Chloride 2 SPRAY Q4P PRN 12/15 1630 AC HANNAH Tiotropium [place] 1 PUF DAILY 12/12 0900 AC 12/18 INH 0955 Zolpidem Tartrate 5 MG AT BEDTIME 12/13 0115 AC 12/17 PO 2039 Vital Signs & I&O Last 24 Hrs of Vitals and I&O: Vital Signs Date Time Temp Pulse Resp B/P B/P Pulse O2 O2 Flow FiO2 Mean Ox Delivery Rate 12/18 0956 51 100/60 12/18 0908 95 Nasal 4.0L Cannula 12/18 0701 98.6 51 20 100/60 95 12/18 0600 98 Nasal 4.0L Cannula 12/18 0000 95 Nasal 4.0L Cannula 12/17 2219 98.1 73 20 122/60 96 Nasal Cannula 12/17 2200 95 Nasal 4.0L Cannula 12/17 1610 92 Nasal 4.0L Cannula 12/17 1522 98.3 69 20 110/65 94 Room Air Intake & Output 12/18 1600 12/18 0800 12/18 0000 Intake Total 240 Output Total 125 125 Balance -125 115 Intake, Oral 240 Number 1 Bowel Movements Output, Urine 125 125 Physical Exam General Appearance: no apparent distress, alert, awake, comfortable Head: atraumatic, normal appearance Eyes: Bilateral: PERRL. Neck: supple Respiratory: no respiratory distress, quiet respiration, accessory muscle use, wheezing Cardiovascular: regular rate/rhythm Gastrointestinal: soft, non-tender Extremities: no edema Skin: intact, normal color, warm/dry Impression/Plan Impression/Plan Impression/Plan: 1. Hypoxemic respiratory failure, secondary to severe emphysema/chronic lung disease. 2. Right upper extremity DVT, rule out pulmonary embolism, on Eliquis. 3. Pulmonary nodules which will require follow-up as per the Fleischner criteria. 4. Recent rib fractures without significant hemothorax. 5. AAA endovascular repair and bilateral groin cutdowns on 12/11/2017. 6. Urine culture positive for Proteus, on Keflex. 7. Constipation - improved. Recommendations: * Continue Eliquis. * Nebulizer treatments with albuterol every 4 hours as needed, can get the patient a nebulizer and albuterol for home. * Mucinex 600 mg p.o. twice daily as needed upon discharge. * Continue incentive spirometry. * Acapella therapy - to continue * Nasal saline and Flonase to be continued. * Claritin 10 mg daily. * Prednisone taper: 40 mg for 2 days, 30 mg for 3 days, 20 mg for 3 days, 10 mg for 3 days, 5 mA for 3 days then stop. * Bowel regimen for constipation to continue. * DVT prophylaxis at all times. * Continue to increase activity. * The patient will need to be referred to the wellness center for evaluation post discharge.
[2017-12-18 14:28] VITALS: BP 122/60
[2017-12-18 21:30] VITALS: BP 110/60
[2017-12-19 06:18] VITALS: BP 118/64
--- NOTE | 2017-12-19 06:23 | PN- Housestaff ---
Latanya Ward 12/19/17 0612: Subjective Follow-up For: Hypoxemic Respiratory Failure 2/2 to severe Emphysema/chronic lung disease. DVT Right Upper Extremity Subjective: Patient seen and examined at bedside this morning. Currently saturating well on 2L NC although never required oxygen at home. Case management on case to find patietn portable home O2. Denies any chest pain, sob, cough, congestion at this time. Has been known to desaturate when ambulating and will monitor prior to discharge. Patient educated extensively on his new medications including a rescue inhaler, nebulizer and advisde to follow up to the Wellness center as per Dr. Thomas. Review of Systems Constitutional: Denies: see HPI. Objective Last 24 Hrs of Vital Signs/I&O Vital Signs Date Time Temp Pulse Resp B/P B/P Pulse O2 O2 Flow FiO2 Mean Ox Delivery Rate 12/19 0922 97.9 68 20 118/64 12/19 0618 97.9 68 20 118/64 92 12/19 0600 Nasal 2.0L Cannula 12/19 0000 92 Nasal 2.0L Cannula 12/18 2200 92 Nasal 2.0L Cannula 12/18 2130 97.7 73 16 110/60 90 Nasal Cannula 12/18 1650 96 Nasal 3.0L Cannula 12/18 1428 97.6 71 20 122/60 94 Nasal 3.0L Cannula 12/18 1400 93 Nasal 3.0L Cannula 12/18 1302 94 Nasal 3.0L Cannula Intake & Output 12/19 1600 12/19 0800 12/19 0000 Intake Total 100 100 Output Total 300 Balance 100 -200 Intake, Oral 100 100 Output, Urine 300 Physical Exam General Appearance: Alert, Oriented X3, Cooperative, No Acute Distress HEENT: PERRLA, EOMI, Mucous Membr. moist/pink Cardiovascular: Regular Rate, Normal S1, Normal S2 Lungs: slight wheezing, normal air entery in lung loaiza Abdomen: Normal Bowel Sounds, Soft, No Tenderness Extremities: No Clubbing, No Cyanosis, No Edema Vascular: Normal Pulses, Pulses Symmetrical Current Medications: Current Medications Sig/Galdino Start time Last Medication Dose Route Stop Time Status Admin Acetaminophen 650 MG Q6P PRN 12/11 1530 AC PO Albuterol Sulfate 3 ML EVERY 4 HRS/AWAKE 12/15 1999 AC 12/19 INH 0823 Apixaban 10 MG BID 12/17 1258 AC 12/19 PO 0920 Aspirin Buffered 81 MG DAILY 12/12 0900 AC 12/19 PO 0920 Atorvastatin Calcium 40 MG 1700 12/11 1700 AC 12/18 PO 1713 Benzonatate 100 MG TID 12/15 1605 AC 12/19 PO 0922 Diphenhydramine HCl 50 MG AT BEDTIME NEED.. 12/14 1315 AC IV Docusate Sodium 100 MG BID 12/11 2100 AC 12/19 PO 0920 Fluticasone 2 SPRAY DAILY 12/15 1618 AC 12/19 Propionate HANNAH 0922 Guaifenesin 600 MG Q12 12/14 2222 AC 12/19 PO 0920 Labetalol HCl 100 MG DAILY 12/12 0900 AC 12/19 PO 0922 Levothyroxine Sodium 0.025 MG DAILY AC 12/12 0700 AC 12/19 PO 0548 Lidocaine 1 PAT DAILY NEEDED PRN 12/15 0900 TOP Loratadine 10 MG DAILY 12/15 1620 AC 12/19 PO 0920 Morphine Sulfate 2 MG Q4-6 PRN PRN 12/11 1530 DC IV Nicotine 21 MG DAILY 12/15 1029 AC 12/19 TOP 0923 Ondansetron HCl 4 MG Q6P PRN 12/11 1530 AC IV Oxycodone/ 1 TAB Q4P PRN 12/11 1530 DC 12/13 Acetaminophen PO 1821 Oxycodone/ 2 TAB Q4P PRN 12/11 1530 DC Acetaminophen PO Prednisone 5 MG 0900 12/28 0900 AC PO 12/31 0859 Prednisone 10 MG 12/25 0900 AC PO 12/28 0859 Prednisone 20 MG 12/22 0900 AC PO 12/25 0859 Prednisone 30 MG DAILY 12/19 0900 CAN PO 12/31 0859 Prednisone 30 MG 12/19 0900 AC 12/19 PO 12/22 0859 0921 Prednisone 40 MG DAILY 12/15 1616 DC 12/18 PO 0954 Sodium Chloride 2 SPRAY Q4P PRN 12/15 1630 AC HANNAH Tiotropium [place] 1 PUF DAILY 12/12 0900 AC 12/19 INH 0922 Zolpidem Tartrate 5 MG AT BEDTIME 12/13 0115 AC 12/18 PO 2043 Last 24 Hrs of Lab/Jostin Results Last 24 Hrs of Labs/Mics: Laboratory Tests 12/19/17 0655: CBC w Diff NO MAN DIFF REQ, RBC 3.21 L, MCV 92.5, MCH 30.6, MCHC 33.1, RDW 14.5 , MPV 6.7 L, Gran % 78.2 H, Lymphocytes % 11.8 L, Monocytes % 9.3, Eosinophils % 0.4, Basophils % 0.3, Absolute Granulocytes 12.3 H, Absolute Lymphocytes 1.9, Absolute Monocytes 1.5 H, Absolute Eosinophils 0.1, Absolute Basophils 0 Assessment/Plan Assessment: Patient is a 77 year old male with PMH of COPD (no home O2), CAD, prostate cancer s/p radiation, left 10th/11th ribs post fall, known aoirtic aneurysm and claudication. Patient is post op day 5 of elective endovascular abdominal aneurysm repair, right common femur endarterectomy/patch angioplasty and stenting of the right external iliac artery. Patient saturations low when ambulating. Saturating well on 2L NC now. Never required home O2. Case management following to have [facility] portable O2 tank prior to discharge. Dr. Thomas following closely and advised patient about the Wellness center. Educated on new medications that will be started at home including rescue inhaler, nebulizer. DVT Right Upper Extremity -Upper Extremity Doppler: indicative of DVT in right brachial vein -Non-contrast CT of chest to r/o hemothorax; no indication of any pulmonary embolism or hemothorax; initially started on IV Heparin 25,000 units in D5W now discontinued * Eliquis 10mg PO BID was started Hypoxemic Respiratory Failure 2/2 to severe Emphysema/chronic lung disease * Pulmonology following (Dr. Thomas) * Prednisone taper: 40 mg for 2 days, 30 mg for 3 days, 20 mg for 3 days, 10 mg for 3 days, 5 mA for 3 days then stop. * Nebulizer treatments with albuterol every 4 hours as needed, can get the patient a nebulizer and albuterol (0.083% 4 times daily as needed) for home. * Mucinex 600 mg p.o. twice daily as needed upon discharge. * Continue incentive spirometry. * Acapella therapy - to continue * Nasal saline and Flonase to be continued. * Claritin 10 mg daily * Patient will need to be referred to the wellness center for evaluation post discharge. Vascular Follow Up * Follow up with Dr. Salazar 2 weeks from discharge for staple removal DVT PPX: Eliquis 10mg PO BID Code Status: Full Code Problem List: 1. DVT (deep venous thrombosis) Pain Ratin Pain Location: no pain today Pain Goal: Remain pain free Pain Plan: as per pain pathway Tomorrow's Labs & Rationales: possible discharge Zak Chapa MD 12/19/173: Attending MD Review Statement Attending Statement Attending MD Statement: examined this patient, discuss w/resident/PA/GARAGE WORKER, agreed w/resident/PA/GARAGE WORKER, reviewed EMR data (avail), discussed with nursing, discussed with case mgmt, amended to note Attending Assessment/Plan: The patient was seen and discussed with house staff, nursing and case management. Appreciate pulmonary input form Dr. Jauregui. OK to discharge today on nasal oxygen 2L/min. Will continue oxygen taper at home. Arranged for home oxygen and nebulizer machine.
[2017-12-19 09:20] LABS: ABSOLUTE BASOPHIL COUNT 0 /CUMM (0.0-0.2); ABSOLUTE EOSINOPHIL COUNT 0.1 /CUMM (0.0-0.7); ABSOLUTE GRANULOCYTE CT 12.3 /CUMM (1.4-6.5); ABSOLUTE LYMPH COUNT 1.9 /CUMM (1.2-3.4); ABSOLUTE MONOCYTE COUNT 1.5 /CUMM (0.10-0.60); BASOPHIL % 0.3 % (0.0-2.0); EOSINOPHIL % 0.4 % (0-5); GRANULOCYTE % 78.2 % (42.2-75.2); HEMATOCRIT 29.7 % (42-52); MEAN CORPUSCULAR HGB 30.6 PG (27.0-31.0); MEAN CORPUSCULAR HGB CONC 33.1 G/DL (33.0-37.0); MEAN CORPUSCULAR VOLUME 92.5 FL (80.0-94.0); MEAN PLATELET VOLUME 6.7 FL (7.4-10.4); PLATELET COUNT 497 /CUMM (130-400); RBC DISTRIBUTION WIDTH 14.5 % (11.5-14.5); RED BLOOD CELL CT 3.21 /CUMM (4.70-6.10); WHITE BLOOD CELL COUNT 15.8 /CUMM (4.8-10.8)
--- NOTE | 2017-12-19 09:34 | PN- Pulmonary ---
Subjective HPI/Critical Care Issues: The patient is awake and alert. He reports feeling markedly improved. He is now down to 2 L nasal cannula. He is ambulating better. He denies any cough, shortness of breath, chest congestion, chest pain or sputum production. There were no overnight events reported. Objective Current Medications: Current Medications Sig/Galdino Start time Last Medication Dose Route Stop Time Status Admin Acetaminophen 650 MG Q6P PRN 12/11 1530 AC PO Albuterol Sulfate 3 ML EVERY 4 HRS/AWAKE 12/14 2000 AC 12/19 INH 0823 Apixaban 10 MG BID 12/17 1258 AC 12/19 PO 0920 Aspirin Buffered 81 MG DAILY 12/12 0900 AC 12/19 PO 0920 Atorvastatin Calcium 40 MG 1700 12/11 1700 AC 12/18 PO 1713 Benzonatate 100 MG TID 12/15 1605 AC 12/19 PO 0922 Diphenhydramine HCl 50 MG AT BEDTIME NEED.. 12/14 1315 AC IV Docusate Sodium 100 MG BID 12/11 2100 AC 12/19 PO 0920 Fluticasone 2 SPRAY DAILY 12/15 1618 AC 12/19 Propionate HANNAH 0922 Guaifenesin 600 MG Q12 12/14 2222 AC 12/19 PO 0920 Labetalol HCl 100 MG DAILY 12/12 0900 AC 12/19 PO 0922 Levothyroxine Sodium 0.025 MG DAILY AC 12/12 0700 AC 12/19 PO 0548 Lidocaine 1 PAT DAILY NEEDED PRN 12/15 0900 AC TOP Loratadine 10 MG DAILY 12/15 1620 AC 12/19 PO 0920 Morphine Sulfate 2 MG Q4-6 PRN PRN 12/11 1530 DC IV Nicotine 21 MG DAILY 12/15 1029 AC 12/19 TOP 0923 Ondansetron HCl 4 MG Q6P PRN 12/11 1530 AC IV Oxycodone/ 1 TAB Q4P PRN 12/11 1530 DC 12/13 Acetaminophen PO 1821 Oxycodone/ 2 TAB Q4P PRN 12/11 1530 DC Acetaminophen PO Patient Medication 1 ED ONE ONE 12/18 1030 DC 12/18 Teaching ED 12/18 1031 1331 Prednisone 5 MG 12/28 09 AC PO 12/31 08 Prednisone 10 MG 12/25 09 AC PO 12/28 0859 Prednisone 20 MG 12/22 09 AC PO 12/25 858 Prednisone 30 MG DAILY 12/19 09 CAN PO 12/31 858 Prednisone 30 MG 12/19 09 AC 12/19 PO 12/22 0859 0921 Prednisone 40 MG DAILY 12/15 1616 DC 12/18 PO 0954 Sodium Chloride 2 SPRAY Q4P PRN 12/15 1630 AC HANNAH Tiotropium [place] 1 PUF DAILY 12/12 09 AC 12/19 INH 0922 Zolpidem Tartrate 5 MG AT BEDTIME 12/13 0115 AC 12/18 PO 2043 Vital Signs & I&O Last 24 Hrs of Vitals and I&O: Vital Signs Date Time Temp Pulse Resp B/P B/P Pulse O2 O2 Flow FiO2 Mean Ox Delivery Rate 12/19 921 97.9 68 20 118/64 12/19 0618 97.9 68 20 118/64 92 12/19 0600 Nasal 2.0L Cannula 12/19 0000 92 Nasal 2.0L Cannula 12/18 2200 92 Nasal 2.0L Cannula 12/18 2130 97.7 73 16 110/60 90 Nasal Cannula 12/18 1650 96 Nasal 3.0L Cannula 12/18 1428 97.6 71 20 122/60 94 Nasal 3.0L Cannula 12/18 1400 93 Nasal 3.0L Cannula 12/18 1302 94 Nasal 3.0L Cannula 12/18 0956 51 100/60 Intake & Output 12/19 1600 12/19 0800 12/19 0000 Intake Total 100 100 Output Total 300 Balance 100 -200 Intake, Oral 100 100 Output, Urine 300 Physical Exam General Appearance: no apparent distress, alert, awake, comfortable Head: atraumatic, normal appearance Eyes: Bilateral: PERRL. Neck: supple Respiratory: no respiratory distress, quiet respiration, accessory muscle use, wheezing Cardiovascular: regular rate/rhythm Gastrointestinal: soft, non-tender Extremities: no edema Skin: intact, normal color, warm/dry Results Last 24 Hrs of Lab Results: Laboratory Tests 12/19/17 0655: CBC w Diff NO MAN DIFF REQ, RBC 3.21 L, MCV 92.5, MCH 30.6, MCHC 33.1, RDW 14.5 , MPV 6.7 L, Gran % 78.2 H, Lymphocytes % 11.8 L, Monocytes % 9.3, Eosinophils % 0.4, Basophils % 0.3, Absolute Granulocytes 12.3 H, Absolute Lymphocytes 1.9, Absolute Monocytes 1.5 H, Absolute Eosinophils 0.1, Absolute Basophils 0 Impression/Plan Impression/Plan Impression/Plan: 1. Hypoxemic respiratory failure, secondary to severe emphysema/chronic lung disease, improving. 2. Right upper extremity DVT, rule out pulmonary embolism, on Eliquis. 3. Pulmonary nodules which will require follow-up as per the Fleischner criteria. 4. Recent rib fractures without significant hemothorax. 5. AAA endovascular repair and bilateral groin cutdowns on 12/11/2017. 6. Leukocytosis likely secondary to steroid therapy. Recommendations: * Continue Eliquis. * Nebulizer treatments with albuterol every 4 hours as needed, can get the patient a nebulizer and albuterol (0.083% 4 times daily as needed) for home. * Pro-air 2 puffs every 4 hours as needed. * Spiriva 1 inhalation every morning. * Mucinex 600 mg p.o. twice daily as needed upon discharge. * Continue incentive spirometry and acapella therapy - to continue * Nasal saline and Flonase to be continued. * Claritin 10 mg daily. * Prednisone taper as written yesterday. * The patient will need to be referred to the wellness center for evaluation post discharge. * My office will contact the patient for a follow-up appointment.
[2017-12-19] MEDS ORDERED: ALBUTEROL2.5 MG/3 M INH ×2 (10:04→14:51)
[2017-12-19] MEDS ORDERED: SPIRIVA18 MCG INH ×2 (10:04→14:51)
[2017-12-19] MEDS ORDERED: PROAIR HFA8.5 GM INH ×2 (10:04→14:55)
[2017-12-19 14:17] VITALS: BP 115/32
[2017-12-19] MEDS ORDERED: ELIQUIS5 M1 PO ×2 (14:33→14:51)
[2017-12-19] MEDS ORDERED: PREDNISONE5 M1 PO ×2 (14:33→14:51)
== END 2017-12-19 15:55 | DRG 269 ==
LOC: SDA 04:32 → CRI 04:32 → ENRESERV 15:24 → ENTRNSPT 15:33 → CMPTRNSPT 16:21 → CRI 16:36 → DELTRNSPT 12-13 19:44 → ENTRNSPT 12-13 20:21 → EDTRNSPT 12-13 20:41 → EDTRNSPTSTS 12-13 20:41 → CMPTRNSPT 12-13 21:01 → 2NA 12-13 21:12 → ENPENDDIS 12-19 14:46 → ENTRNSPT 12-19 15:53 → 2NA 12-19 15:55 → EDTRNSPTSTS 12-19 16:16 → EDTRNSPT 12-19 16:16 → CMPTRNSPT 12-19 16:39
PROVIDERS: Internal Medicine; Nurse Practitioner; Physician Assistant; Physician Assistant Surgical; Surgery Vascular Surgery
PROC: 04V03E6 (ICD-10-PCS; principal; 2017-12-11)
PROC: 04CK3ZZ Extirpation of Matter from Right Femoral Artery, Percutaneous Approach (ICD-10-PCS; 2017-12-11)
PROC: 0T9B70Z Drainage of Bladder with Drainage Device, Via Natural or Artificial Opening (ICD-10-PCS; 2017-12-11)
PROC: 047C3DZ Dilation of Right Common Iliac Artery with Intraluminal Device, Percutaneous Approach (ICD-10-PCS; 2017-12-11)
PROC: 047H3DZ Dilation of Right External Iliac Artery with Intraluminal Device, Percutaneous Approach (ICD-10-PCS; 2017-12-11)
DX: I71.4 Abdominal aortic aneurysm, without rupture (principal); S22.42XA Multiple fractures of ribs, left side, initial encounter for closed fracture; I82.621 Acute embolism and thrombosis of deep veins of right upper extremity; N39.0 Urinary tract infection, site not specified; J84.9 Interstitial pulmonary disease, unspecified; J96.11 Chronic respiratory failure with hypoxia; E78.5 Hyperlipidemia, unspecified; J44.9 Chronic obstructive pulmonary disease, unspecified; E03.9 Hypothyroidism, unspecified; Z85.46 Personal history of malignant neoplasm of prostate; I12.9 Hypertensive chronic kidney disease with stage 1 through stage 4 chronic kidney disease, or unspecified chronic kidney disease; N18.3 Chronic kidney disease, stage 3 (moderate); N47.1 Phimosis; I70.219 Atherosclerosis of native arteries of extremities with intermittent claudication, unspecified extremity; E66.9 Obesity, unspecified; Z68.28 Body mass index [BMI] 28.0-28.9, adult; F17.210 Nicotine dependence, cigarettes, uncomplicated; R91.8 Other nonspecific abnormal finding of lung field; E11.22 Type 2 diabetes mellitus with diabetic chronic kidney disease; K59.09 Other constipation; B96.4 Proteus (mirabilis) (morganii) as the cause of diseases classified elsewhere; T38.0X5A Adverse effect of glucocorticoids and synthetic analogues, initial encounter; R09.02 Hypoxemia; Z92.3 Personal history of irradiation; J61 Pneumoconiosis due to asbestos and other mineral fibers
CPT/HCPCS: 2NASP; CCU; 36415; 36592; 71045; 71046; 76000; 78582; 82436; 86920; 87070; 87086; 88304; 93970; 97110-GO; 97116-GO; 97161-GP; 97530-GO; A9540; A9558; C1725; C1876; J0131; J0690; J1200; J1644; J2001; J3490; J7060; J7512; J7608; P9016; Q9967